=== PATIENT | female | born 1960 | race Caucasian/White ===

== ENCOUNTER 2020-09-24 10:39 | Outpatient (REF) | payer MEDICARE, MEDICAID, SELFPAY ==
[2020-09-24 11:48] LABS: MANUAL DIFF FLAG NO
[2020-09-24 12:08] LABS: Basophils Percent Auto 0.5 % (0-2); Eosinophils Absolute Auto 0.1 X10*3/uL (0.0-0.4); Hematocrit 44.4 % (37-47); Hemoglobin 13.9 g/dl (12.0-16.0); Imm Gran Abs Auto 0.01 X10*3/uL (0.00-0.03); Imm Gran Pct Auto 0.2 % (0.0-0.4); Lymphocytes Absolute Auto 1.5 X10*3/uL (1.2-4.9); Lymphocytes Percent Auto 24.5 % (20-40); Mean Corpuscular HGB Conc 31.3 g/dl (31.0-35.0); Mean Corpuscular Hemoglobin 30.4 pg (27.0-33.0); Mean Corpuscular Volume 97.2 fL (80-98); Mean Platelet Volume 10.4 fL (9.4-12.3); Monocytes Absolute Auto 0.3 X10*3/uL (0.1-1.2); Monocytes Percent Auto 5.7 % (2-11); Neutrophils Percent Auto 67.1 % (45-73); Platelet Count 174 X10*3/uL (160-400); Red Blood Count 4.57 X10*6/uL (4.20-5.50); Red Cell Distribution Width 13.4 % (11.0-16.0); White Blood Count 5.9 X10*3/uL (4.8-10.8)
[2020-09-24 12:12] LABS: Lithium 0.97 mmol/L (0.60-1.20)
[2020-09-24 12:22] LABS: Blood Urea Nitrogen 13 mg/dL (9-16); Estimated Glomerular Filt Rate > 60
[2020-09-24 12:27] LABS: Estimated Average Glucose 88 mg/dL; Hemoglobin A1c % 4.7 %
[2020-09-24 12:36] LABS: TSH reflex Free T4 0.08 mIU/mL (0.32-4.0)
[2020-09-24 15:29] LABS: Free T4 (Free Thyroxine) 1.08 ng/dL (0.71-1.85)
== END 2020-09-24 10:40 | disposition home or self-care (01) ==
LOC: HO.LAB 10:39
PROVIDERS: Visit Provider Clinical Nurse Specialist Psychiatric/Mental Health
DX: Z79.899 Other long term (current) drug therapy (principal)
CPT/HCPCS: 36415; 80178; 82565; 83036; 84439; 84443; 84520; 85025

== ENCOUNTER → 2020-12-12 10:05 | Outpatient (BNVA) | payer MEDICARE, MEDICAID, SELFPAY | PROVIDERS: Visit Provider Internal Medicine | DX: J44.9 Chronic obstructive pulmonary disease, unspecified (principal); F41.9 Anxiety disorder, unspecified; F17.200 Nicotine dependence, unspecified, uncomplicated; Z71.6 Tobacco abuse counseling; Z79.899 Other long term (current) drug therapy | CPT/HCPCS: 99212 ==

== ENCOUNTER 2021-01-17 09:47 | Outpatient (REF) | payer MEDICARE, MEDICAID, SELFPAY ==
--- NOTE | 2021-01-17 13:24 | PFT_ITS ---
Forced vital capacity is normal. FEV1 slightly reduced. [id number] is markedly reduced. MVV slightly reduced. Postbronchodilator therapy, there is no significant change. Total lung capacity is slightly increased. Residual volume moderately increased. Diffusion capacity slightly decreased. CONCLUSION: Mild obstructive airway disorder with evidence of hyperinflation and some air trapping. No significant response to bronchodilator therapy is noted. MD HAMLET Howell/MODL / [id number]
== END 2021-01-17 09:48 | disposition home or self-care (01) ==
LOC: HO.RESP 09:47
PROVIDERS: Visit Provider Internal Medicine
DX: J44.9 Chronic obstructive pulmonary disease, unspecified (principal); F17.200 Nicotine dependence, unspecified, uncomplicated
CPT/HCPCS: 94060; 94727; 94729; 99212

== ENCOUNTER 2021-11-13 06:53 | Outpatient (REF) | payer MEDICARE, MEDICAID, SELFPAY ==
[2021-11-13 07:58] LABS: Anion Gap 13 (12-20); Blood Urea Nitrogen 10 mg/dL (9-16); Calcium 11.1 mg/dL (8.4-10.2); Carbon Dioxide 32 mmol/L (22-29); Chloride 97 mmol/L (96-108); Estimated Glomerular Filt Rate 35; Glucose Random 84 mg/dL (60-115); Potassium 4.6 mmol/L (3.3-5.1); Sodium 137 mmol/L (135-145)
[2021-11-13 08:24] LABS: T4 Thyroxine < 3.0 ug/dL (4.5-12.0)
[2021-11-13 08:25] LABS: Thyroid Stimulating Hormone > 100.00 uIU/mL (0.32-4.0)
[2021-11-14 06:40] LABS: Triiodothyronine T3 Total <25 ng/dL (76-181)
== END 2021-11-13 06:54 | disposition home or self-care (01) ==
LOC: HO.LAB 06:53
PROVIDERS: Visit Provider Nurse Practitioner
DX: Z79.899 Other long term (current) drug therapy (principal)
CPT/HCPCS: 36415; 80048; 80178; 84436; 84443; 84480

== ENCOUNTER → 2021-12-12 09:26 | Outpatient (BNVA) | payer MEDICARE, MEDICAID, SELFPAY | PROVIDERS: Visit Provider Internal Medicine | DX: J44.9 Chronic obstructive pulmonary disease, unspecified (principal); F41.9 Anxiety disorder, unspecified; R91.1 Solitary pulmonary nodule; F17.210 Nicotine dependence, cigarettes, uncomplicated | CPT/HCPCS: 99212 ==

== ENCOUNTER 2022-02-28 07:47 | Outpatient (REF) | payer MEDICARE, MEDICAID, SELFPAY ==
--- NOTE | ~2022-02-28 | CT_ITS ---
EXAMINATION: CT CHEST SCREENING CLINICAL INFORMATION: Current smoker. 40 pack year history. COMPARISON: None. TECHNIQUE: Multidetector volumetric CT imaging of the chest is performed without contrast using low dose technique. Additional 2D coronal and sagittal reformatted images and axial 3D maximum intensity projection (MIP) images are generated on the CT workstation. This CT examination was performed using dose optimization techniques as appropriate, variously including the following: *Automated exposure control *Adjustment of mA and/or kV according to patient size (this includes techniques or standardized protocols for targeted exams where dose is matched to indication/reason for exam; i.e. extremities or head) *Use of iterative reconstruction technique DLP: 98 mGy-cm FINDINGS: LUNGS: Stable pulmonary nodules. 4 mm right upper lobe nodule axial image 195 series 5. Minimal thickening along the right major fissure axial image 239 series 5. Clustered peribronchial left upper lobe nodules, largest measuring 2 mm axial image 233 series 5. 3 mm calcified right lower lobe nodule axial image 288 series 5. Scarring or subsegmental atelectasis at the right lung base in the right lower lobe. No endobronchial or endotracheal lesion. MEDIASTINUM: The mediastinum is normal. PLEURA: No pleural effusion. Prominent extrapleural fat adjacent to the left upper lobe that is stable. AXILLA: No lymphadenopathy. UPPER ABDOMEN: Unremarkable OSSEOUS STRUCTURES: Degenerative changes of the spine. CT/CT lung screening IMPRESSION: Stable small pulmonary nodules. ASSESSMENT: Lung-RADS category 2: Benign RECOMMENDATION: Annual low-dose chest CT follow-up recommended.
== END 2022-02-28 07:48 | disposition home or self-care (01) ==
LOC: HO.CT 07:47
PROVIDERS: Visit Provider Physician Assistant Medical
DX: Z12.2 Encounter for screening for malignant neoplasm of respiratory organs (principal); F17.210 Nicotine dependence, cigarettes, uncomplicated
CPT/HCPCS: 71271

== ENCOUNTER → 2022-06-12 09:46 | Outpatient (BNVA) | payer MEDICARE, MEDICAID, SELFPAY | PROVIDERS: PCP Nurse Practitioner Family; Visit Provider Internal Medicine | DX: J44.9 Chronic obstructive pulmonary disease, unspecified (principal); R91.1 Solitary pulmonary nodule; Z87.891 Personal history of nicotine dependence | CPT/HCPCS: 99212 ==

== ENCOUNTER 2022-08-12 07:44 | Outpatient (REF) | payer MEDICARE, MEDICAID, SELFPAY ==
[2022-08-12 07:55] LABS: MANUAL DIFF FLAG NO
[2022-08-12 08:13] LABS: Basophils Percent Auto 0.8 % (0-2); Eosinophils Absolute Auto 0.1 X10*3/uL (0.0-0.4); Eosinophils Percent Auto 1.9 % (0-4); Hematocrit 35.9 % (37.0-47.0); Hemoglobin 11.1 g/dl (12.0-16.0); Imm Gran Abs Auto 0.03 X10*3/uL (0.00-0.03); Imm Gran Pct Auto 0.8 % (0.0-0.4); Lymphocytes Absolute Auto 0.6 X10*3/uL (1.2-4.9); Lymphocytes Percent Auto 15.7 % (20-40); Mean Corpuscular HGB Conc 30.9 g/dl (31.0-35.0); Mean Corpuscular Hemoglobin 31.1 pg (27.0-33.0); Mean Corpuscular Volume 100.6 fL (80.0-98.0); Mean Platelet Volume 9.6 fL (9.4-12.3); Monocytes Absolute Auto 0.4 X10*3/uL (0.1-1.2); Monocytes Percent Auto 9.9 % (2-11); Neutrophils Absolute Auto 2.6 x10*3/uL (2.0-8.3); Neutrophils Percent Auto 70.9 % (45-73); Platelet Count 181 X10*3/uL (160-400); Red Blood Count 3.57 X10*6/uL (4.20-5.50); Red Cell Distribution Width 15.2 % (11.0-16.0); White Blood Count 3.6 X10*3/uL (4.8-10.8)
[2022-08-12 09:05] LABS: Alanine Aminotransferase 16 U/L (0-31); Albumin Level 4.2 g/dL (3.5-5.0); Alkaline Phosphatase 52 U/L (39-117); Anion Gap 14 (12-20); Aspartate Amino Transferase 9 U/L (5-31); Bilirubin Total 0.4 mg/dL (0.0-1.0); Blood Urea Nitrogen 13 mg/dL (9-16); Calcium 10.2 mg/dL (8.4-10.2); Carbon Dioxide 27 mmol/L (22-29); Chloride 104 mmol/L (96-108); Cholesterol 123 mg/dL; Estimated Glomerular Filt Rate 55; Free T4 (Free Thyroxine) 1.57 ng/dL (0.71-1.85); Glucose Fasting 96 mg/dL (60-99); HDL Cholesterol 46 mg/dL; LDL Cholesterol Calculated 64 mg/dl; Potassium 4.2 mmol/L (3.3-5.1); Sodium 141 mmol/L (135-145); Thyroid Stimulating Hormone 0.51 uIU/mL (0.32-4.0); Total Protein 6.2 g/dL (6.5-8.0); Triglycerides 66 mg/dL; Vitamin D 25-OH Total 11.6 ng/mL (>30)
[2022-08-12 09:20] LABS: Folate 2.3 ng/mL (> or = 4.0); Vitamin B12 < 148 pg/mL (200-900)
[2022-08-14 09:49] LABS: Thyroid Peroxidase Antibodies 92 IU/mL (<9)
== END 2022-08-12 07:45 | disposition home or self-care (01) ==
LOC: HO.LAB 07:44
PROVIDERS: PCP Nurse Practitioner Family; Visit Provider Nurse Practitioner Family
DX: E03.9 Hypothyroidism, unspecified (principal); Z76.89 Persons encountering health services in other specified circumstances
CPT/HCPCS: 36415; 80053; 80061; 82306; 82607; 82746; 84439; 84443; 85025; 86376

== ENCOUNTER → 2022-08-26 10:47 | Outpatient (BNVA) | payer MEDICARE, MEDICAID, SELFPAY | PROVIDERS: PCP Nurse Practitioner Family; Visit Provider Internal Medicine Endocrinology, Diabetes & Metabolism | DX: E03.9 Hypothyroidism, unspecified (principal); Z79.899 Other long term (current) drug therapy | CPT/HCPCS: 99202 ==

== ENCOUNTER → 2022-10-14 09:31 | Outpatient (BNVA) | payer MEDICARE, MEDICAID, SELFPAY | PROVIDERS: PCP Nurse Practitioner Family; Visit Provider Internal Medicine | DX: J44.9 Chronic obstructive pulmonary disease, unspecified (principal); R91.1 Solitary pulmonary nodule; F17.200 Nicotine dependence, unspecified, uncomplicated | CPT/HCPCS: 99212 ==

== ENCOUNTER 2022-10-15 07:25 | Outpatient (REF) | payer MEDICARE, MEDICAID, SELFPAY ==
--- NOTE | ~2022-10-15 | CT_ITS ---
EXAMINATION: CT HEAD WITHOUT CONTRAST CLINICAL INFORMATION: Gait and mobility abnormality. COMPARISON: None TECHNIQUE: Contiguous axial imaging was performed from the skull base to vertex without intravenous administration of contrast. This CT examination was performed using dose optimization techniques as appropriate, variously including the following: *Automated exposure control *Adjustment of mA and/or kV according to patient size (this includes techniques or standardized protocols for targeted exams where dose is matched to indication/reason for exam; i.e. extremities or head) *Use of iterative reconstruction technique DLP: 814 mGy-cm FINDINGS: No intracranial hemorrhage is identified. No abnormal extra-axial fluid collection is seen. No significant mass effect or midline structure shift. Coles-white matter interface is maintained. The ventricles, sulci, and cisterns appear unremarkable. Visualized paranasal sinuses unremarkable. Mastoid air cells are aerated. Calvarium intact. Temporomandibular joints unremarkable. CT/CT head/brain wo IV con IMPRESSION: No acute intracranial pathology.
== END 2022-10-15 07:26 | disposition home or self-care (01) ==
LOC: HO.CT 07:25
PROVIDERS: PCP Nurse Practitioner Family; Visit Provider Nurse Practitioner Family
DX: R26.89 Other abnormalities of gait and mobility (principal)
CPT/HCPCS: 70450

== ENCOUNTER 2022-10-30 13:39 | Outpatient (REF) | payer MEDICARE, MEDICAID, SELFPAY ==
--- NOTE | 2022-10-30 08:15 | EMG_ITS ---
Right median and ulnar motor and sensory studies were performed. Right radial sensory study was performed and paraspinal muscles were tested with a needle. IMPRESSION: 1. Severe right median neuropathy across carpal tunnel. 2. 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 MD DANIEL Greer/INOCENCIO / [id number]
== END 2022-10-30 13:40 | disposition home or self-care (01) ==
LOC: HO.NEURO 13:39
PROVIDERS: PCP Nurse Practitioner Family; Visit Provider Nurse Practitioner Family
DX: R20.0 Anesthesia of skin (principal)
CPT/HCPCS: 95886; 95909

== ENCOUNTER 2022-11-07 10:19 | Outpatient (REF) | payer MEDICARE, MEDICAID, SELFPAY ==
--- NOTE | ~2022-11-07 | MM_ITS ---
EXAMINATION: MM SCREENING DIGITAL BREAST TOMOSYNTHESIS, BILATERAL CLINICAL INFORMATION: Screening. Asymptomatic. The lifetime risk of breast cancer based on the Tyrer-Cuzick Model is 6%. COMPARISON: Mammography: 06/01/2018 TECHNIQUE: Digital breast tomosynthesis is performed in both the craniocaudal and mediolateral oblique views along with computer-aided detection (CAD). Synthesized 2D images are generated from the tomosynthesis. Additional bilateral MLO views are provided. FINDINGS: There are scattered areas of fibroglandular density (ACR BI-RADS breast composition Category b). There are no significant masses, abnormal calcifications, or other abnormalities. Parenchymal pattern is similar to prior studies. There is no developing density or architectural abnormality. The axilla and skin contours are unremarkable. No significant changes. MM/MM tomosynthesis screening BI IMPRESSION: No mammographic evidence of malignancy. ASSESSMENT: BI-RADS 1: Negative RECOMMENDATION: Routine annual mammography screening. This patient's information was entered into a reminder system with a target due date for their next mammogram.
== END 2022-11-07 10:20 | disposition home or self-care (01) ==
LOC: HO.MAMMO 10:19
PROVIDERS: PCP Nurse Practitioner Family; Visit Provider Internal Medicine
DX: Z12.31 Encounter for screening mammogram for malignant neoplasm of breast (principal)
CPT/HCPCS: 77063; 77067

== ENCOUNTER → 2022-12-10 09:48 | Outpatient (BNVA) | payer MEDICARE, MEDICAID, SELFPAY | PROVIDERS: PCP Internal Medicine; Visit Provider Orthopaedic Surgery | DX: Z01.818 Encounter for other preprocedural examination (principal); G56.01 Carpal tunnel syndrome, right upper limb; G56.22 Lesion of ulnar nerve, left upper limb | CPT/HCPCS: 99202 ==

== ENCOUNTER 2023-01-01 06:40 | Outpatient (REF) | payer MEDICARE, MEDICAID, SELFPAY ==
--- NOTE | ~2023-01-01 | XR_ITS ---
EXAMINATION: XR ABDOMEN KUB CLINICAL INDICATION: Constipation COMPARISON: None available. TECHNIQUE: AP view of the abdomen. FINDINGS: There is a large amount of stool in the colon suggestive of constipation. The proximal colon is slightly dilated suggestive of mild secondary obstruction or obstipation. No free air. No suspicious calcifications. Surgical devices in the pelvis likely from prior fallopian tube ligation. Degenerative changes of the lower lumbar spine and right hip joint. XR/XR KUB IMPRESSION: Severe constipation. Slightly dilated proximal large bowel suggestive of mild obstruction.
[2023-01-01 07:22] LABS: Hemoglobin 13.3 g/dl (12.0-16.0); Mean Corpuscular HGB Conc 30.9 g/dl (31.0-35.0); Mean Corpuscular Volume 90.5 fL (80.0-98.0); Mean Platelet Volume 10.4 fL (9.4-12.3); Platelet Count 190 X10*3/uL (160-400); Red Blood Count 4.75 X10*6/uL (4.20-5.50); Red Cell Distribution Width 14.8 % (11.0-16.0); White Blood Count 5.2 X10*3/uL (4.8-10.8)
[2023-01-01 08:02] LABS: Anion Gap 12 (12-20)
[2023-01-01 09:03] LABS: Alanine Aminotransferase 16 U/L (0-31); Albumin Level 4.3 g/dL (3.5-5.0); Alkaline Phosphatase 60 U/L (39-117); Aspartate Amino Transferase 11 U/L (5-31); Bilirubin Total 0.4 mg/dL (0.0-1.0); Blood Urea Nitrogen 14 mg/dL (9-16); Calcium 10.3 mg/dL (8.4-10.2); Carbon Dioxide 27 mmol/L (22-29); Chloride 106 mmol/L (96-108); Estimated Glomerular Filt Rate 52; Ferritin 68 ng/mL (10-250); Glucose Random 86 mg/dL (60-115); Iron 65 mcg/dL (30-160); Percent Iron Saturation 23 % (15-50); Potassium 4.3 mmol/L (3.3-5.1); Sodium 141 mmol/L (135-145); TSH reflex Free T4 0.32 uIU/mL (0.32-4.0); Total Iron Binding Capacity 280 mcg/dL (228-428); Total Protein 6.4 g/dL (6.5-8.0); Unsaturated Iron Binding 215 ug/dL; Vitamin D 25-OH Total 35.6 ng/mL (>30)
[2023-01-01 09:21] LABS: Folate > 20.0 ng/mL (> or = 4.0); Vitamin B12 > 2000 pg/mL (200-900)
== END 2023-01-01 06:41 | disposition home or self-care (01) ==
LOC: HO.LAB 06:40
PROVIDERS: PCP Nurse Practitioner Family; Visit Provider Nurse Practitioner Family
DX: Z13.89 Encounter for screening for other disorder (principal)
CPT/HCPCS: 36415; 74018; 80053; 82306; 82607; 82728; 82746; 83540; 84443; 85027

== ENCOUNTER 2023-01-01 07:22 | Day surgery (SDC) | payer MEDICARE, MEDICAID, SELFPAY ==
[2023-01-01 08:13] VITALS: BMI 23.9
[2023-01-01 08:15] VITALS: BP 105/67; PULSE 82; RESP 18; TEMP 36.7; O2SAT 95
--- NOTE | 2023-01-01 08:20 | MHC.SHP ---
Pre-Procedural Eval Section A Date of Service: 01/01/23 The patient is an INPATIENT: No Changes since office visit: No Cold of Flu in the past 2 weeks, No New Medical Problems, No Changes in Medication and No Patient answered all questions The History & Physical has been completed within 30 days and I have reviewed it.: Yes Section B Chief Complaint: Carpal tunnel syndrome, right upper limb Allergies: Allergies Allergy/AdvReac Type Severity Reaction Status Date / Time bee pollen [BEE STINGS] Allergy Unknown UNKNOWN Verified 12/23/22 08:39 pneumococcal vaccine Allergy Unknown SWELLING Verified 12/23/22 08:39 [PNEUMOCOCCAL VACCINE] Plan I have reviewed the history and physical and performed a pertinent physical examination on my patient. No changes have occurred unless specified. Time Spent With Patient Time: Total time managing care of this patient today ____ minutes.
--- NOTE | 2023-01-01 08:20 | W.PM.OPN ---
Operative Note Operative Note Date of Service: 01/01/23 Narrative: Preop diagnosis: 1. Right Carpal tunnel syndrome Postop diagnosis: same Procedure: 1. Right Carpal tunnel release Surgeon: Rupal Conde MD Anesthesia: local block using 1% lidocaine with epinephrine Findings: Thickened transverse carpal ligament. EBL: Less than 5 mL Specimens: None Complications: None Disposition: Brought to recovery room in stable condition Plan: Follow-up for 10-14 days for wound check and suture removal Indications: The patient is 62 years old, with right carpal tunnel syndrome that has been unresponsive to nonoperative management. The risks and benefits of operative treatment including but not limited to risk of damage to blood vessels, nerves, tendons, infection, persistent pain, persistent symptoms, or possible need for additional surgery were discussed with the patient and the patient wishes to proceed with surgery. Procedure: Once consent was obtained a local block was performed using a combination of 1% lidocaine with epinephrine. The patient was then brought back to the operating suite and placed on the operative table in supine position. The right upper extremity was prepped and draped in a standard surgical fashion. Once assured that we had a good block, a 2.0 cm longitudinal incision was made centered over the carpal tunnel. The incision was made through the skin to the subcutaneous tissues using a #15 blade. Dissection was made down to the level of the transverse carpal ligament with care being taken to protect the palmar cutaneous nerve. Once the transverse carpal ligament was clearly visualized, a longitudinal incision was made in the transverse carpal ligament 1st using a #15 blade, then using tenotomy scissors under direct visualization. Care was taken to look for and protect the motor branch of the median nerve when seen in this area. Once satisfied with our carpal tunnel release the wound was copiously irrigated with normal saline and hemostasis was obtained with a brief period of local pressure. The skin edges were reapproximated with some 5.0 nylon suture material and a sterile dressing was applied. The patient appears to have tolerated the procedure well and with no complications. All digits were well vascularized at the conclusion of the case.
[2023-01-01 09:43] VITALS: BP 108/62; PULSE 71; RESP 18; O2SAT 94
== END 2023-01-01 09:46 | disposition home or self-care (01) ==
PROVIDERS: PCP Nurse Practitioner Family; Visit Provider Orthopaedic Surgery
PROC: (CPT 64721; principal; 2023-01-01 10:10)
DX: G56.01 Carpal tunnel syndrome, right upper limb (principal); R20.0 Anesthesia of skin; R20.2 Paresthesia of skin; J44.9 Chronic obstructive pulmonary disease, unspecified; R91.1 Solitary pulmonary nodule; E03.9 Hypothyroidism, unspecified; F31.9 Bipolar disorder, unspecified; F41.1 Generalized anxiety disorder; Z88.7 Allergy status to serum and vaccine; Z91.030 Bee allergy status; F17.210 Nicotine dependence, cigarettes, uncomplicated; Z79.899 Other long term (current) drug therapy
CPT/HCPCS: 64721; 36415; 74018; 80053; 82306; 82607; 82728; 82746; 83540; 84443; 85027; J0171

== ENCOUNTER → 2023-01-14 08:18 | Outpatient (BNVA) | payer MEDICARE, MEDICAID, SELFPAY | PROVIDERS: PCP Nurse Practitioner Family; Visit Provider Orthopaedic Surgery | DX: Z47.89 Encounter for other orthopedic aftercare (principal); Z86.69 Personal history of other diseases of the nervous system and sense organs | CPT/HCPCS: 99212 ==

== ENCOUNTER → 2023-02-16 08:44 | Outpatient (BNVA) | payer MEDICARE, MEDICAID, SELFPAY | PROVIDERS: PCP Nurse Practitioner Family; Visit Provider Internal Medicine | DX: J44.9 Chronic obstructive pulmonary disease, unspecified (principal); R91.1 Solitary pulmonary nodule; Z87.891 Personal history of nicotine dependence | CPT/HCPCS: 99212 ==

== ENCOUNTER 2023-04-08 14:22 | Outpatient (AMB) | payer MEDICARE, MEDICAID, SELFPAY ==
--- NOTE | 2023-04-08 14:23 | MHC.PC.OV ---
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 Required: No Allergies bee pollen [BEE STINGS] Allergy (Unknown, Verified 04/08/23 14:34) UNKNOWN pneumococcal vaccine [PNEUMOCOCCAL VACCINE] Allergy (Unknown, Verified 04/08/23 14:34) SWELLING Medication List - Last Reconciled 04/08/23 by Lena Cano, KAREL albuterol sulfate 2.5 mg (3 mL) inhalation Q6H PRN cholecalciferol (vitamin D3) 50 mcg PO DAILY clonazepam 1 mg PO BID PRN docusate sodium (Colace) 100 mg PO DAILY PRN fluticasone propion-salmeterol 250-50 mcg/dose (Advair Diskus) 1 inh inhalation BID folic acid 0.4 mg PO DAILY hydroxyzine HCl 50 mg PO BEDTIME lamotrigine 100 mg PO BID levothyroxine 175 mcg PO DAILY lithium carbonate 600 mg PO BEDTIME quetiapine 300 mg PO DAILY quetiapine 400 mg PO BEDTIME Ventolin HFA 90 mcg/actuation (albuterol sulfate) 2 puffs PO Q4-6H PRN NS zolpidem 5 mg PO BEDTIME PRN Tobacco use date assessed: 04/08/23 Dental Screening Dental Screen Date: 04/08/23 Did you have a dental visit in the last 12 months?: No Did you have a dental problem in the last 6 months where you did not have access to dental care?: No Was dental information given to patient?: Patient has dentist HPI f/u Thyroid HPI Details Patient is a 62-year-old female presents today for a routine follow-up. Medical history significant for hypothyroidism, anxiety, bipolar disorder, nicotine dependence, and COPD with lung nodule on CT scan - followed by pulmonology Dr. Garvey.? Mental health is followed by Psychiatry and therapy at [facility]. Patient reports intermittent ongoing constipation for very long time now, she reports when she was on Colace it was helping her, she has ran out on Colace now, would like refill. She reports normal bowel movement yesterday and today.? She denies nausea or vomiting, no abdominal pain. No fever or chills. No shortness of breath or chest pain. ? [facility] Medical History Anxiety Bipolar disorder COPD (chronic obstructive pulmonary disease) Encounter to establish care Gastroenteritis Hypothyroidism Lung nodule < 6cm on CT Personal history of nicotine dependence Tubular adenoma of colon (~2018) Surgical History History of colonoscopy History of shoulder surgery (~2018) History of surgery on right wrist (~2016) Family History Mother Lung cancer Father Colon cancer Social History Household Members: Family Household Members Other:: 2 daughters, 2 grandkids Housing: House Patient Tobacco Use Status: Current everyday Tobacco user Cigarette Packs Per Day: 35 Cigarettes Per Day: 1.5 e-Cigarette/Vaping Use: Never Used Second Hand Smoke Exposure: Yes service: No Current occupational status: unemployed 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 1. Little interest or pleasure in doing things: more than half the days 2. Feeling down, depressed, or hopeless: nearly every day 3. Trouble falling or staying asleep, or sleeping too much: nearly every day 4. Feeling tired or having little energy: nearly every day 5. Poor appetite or overeating: nearly every day (poor appetite ) 6. Feeling bad about yourself - or that you are a failure or have let yourself or your family down: not at all 7. Trouble concentrating on things, such as reading the newspaper or watching television: nearly every day 8. Moving or speaking so slowly that other people could have noticed. Or the opposite - being so fidgety or restless that you have been moving around a lot more than usual: more than half the days 9. Thoughts that you would be better off or of hurting yourself in some way: not at all Total score: 19 Depression Screening Interpretation: Positive Depression Screening Follow-up: In treatment 39132 - PHQ-9 Billing: Yes Source: Developed by Drs. Ok Elmore, Chris Espitia and colleagues, with an educational ty from [employer]. Thrive Questionnaire Date Thrive assessed: 04/08/23 I am a: Patient Currently or been in a relationship where the following occur: no concerns reported AUDIT C Alcohol Use Questionnaire (AUDIT-C) 1. How often do you have a drink containing alcohol?: Never 2. How many drinks containing alcohol do you have on a typical day when you are drinking?: 1 or 2 (0) 3. How often do you have six or more drinks on one occasion?: Never Total Score: 0 Score Reviewed/Action Taken: No NAIMA-7 AMB Questionnaire NAIMA-7 Date NAIMA - 7 assessed: 09/23/22 Source: Developed by Drs. Ok Elmore, Chris Espitia and colleagues, with an educational ty from [employer]. Review of Systems Const Denies body aches, Denies chills, Denies fatigue, Denies fever(s) and Denies headache(s) Eyes Denies change in vision ENT Denies dizziness, Denies otalgia, Denies headache(s), Denies nasal discharge, Denies sinus pain and Denies sore throat Card Denies chest pain, Denies edema, Denies lightheadedness and Denies dyspnea Resp Denies chest congestion, Denies cough, Denies hemoptysis and Denies dyspnea GI Denies abdominal pain, Reports constipation, Denies diarrhea, Denies nausea and Denies vomiting Denies dysuria Musc Denies myalgias Skin/Breast Denies lesions and Denies rash Neuro Denies dizziness and Denies headache(s) Endo Denies fatigue Physical exam (Primary Care) Vital Signs: Last Vital Signs Pulse 77 04/08/23 14:24 BP 138/70 04/08/23 14:24 Pulse Ox 90 L 04/08/23 14:24 Oxygen Delivery Method Room Air 04/08/23 14:24 BMI result Body Mass Index 26.5 Tobacco/Smoking Status: Tobacco use Status Tobacco use date assessed 04/08/23 04/08/23 14:25 Patient Tobacco Use Status Current everyday Tobacco 04/08/23 14:25 e-Cigarette/Vaping Use Never Used 04/08/23 14:25 PHQ-9: PHQ-9 Score PHQ-9: Total score 19 04/08/23 14:25 Depression Screening Interpretation: Positive Depression Screening Follow-up: In treatment Thrive Assessment: Date of Thrive Assessment Date Thrive assessed 04/08/23 04/08/23 14:25 Currently or been in a relationship where the following occur: no concerns reported Const General: cooperative and no acute distress Orientation/consciousness: patient oriented x3 HENMT Head: Yes normocephalic and Yes atraumatic Face and sinus: Yes sinuses nontender Mouth: oropharynx normal and moist mucous membranes Throat: Yes posterior oropharynx normal Eyes General: appearance normal, both eyes and all related structures Neck Neck: Yes normal visual inspection, Yes full ROM and Yes no lymphadenopathy Thyroid: Thyroid normal Resp Effort & Inspection: normal respiratory effort and able to speak in complete sentences Auscultation: clear to auscultation bilaterally, no crackles, no rales, no rhonchi and no wheezes Cardio Rate: regular rate Rhythm: regular rhythm Heart sounds: S1 normal heart sound present, S2 normal heart sound present and no murmurs GI Palpation (GI): Soft to palpation, not firm, nontender, no guarding, not rigid and no hepatosplenomegaly Auscultation: normal bowel sounds Skin General skin exam: no rashes or lesions noted Neuro General: patient oriented x3 Gait exam (Neuro): Normal gait present Extrem General: Yes full ROM and No edema Assessment and Plan Assessment & Plan (1) Hypothyroidism: Code(s): E03.9 - Hypothyroidism, unspecified Plan: Levothyroxine 175 mcg daily Patient was seen by endocrinology once and transferred to PCP for thyroid management (2) Anxiety: Code(s): F41.9 - Anxiety disorder, unspecified Plan: Continue to follow-up with Psychiatry Dr. Medina and therapist at [facility] Patient is on Klonopin 1 mg b.i.d. p.r.n.-prescribed by Psychiatry (3) Bipolar disorder: Code(s): F31.9 - Bipolar disorder, unspecified Plan: Continue to follow-up with Psychiatry Dr. Median and therapist at [facility] Patient is on Lamotrigine, lithium, and quetiapine-prescribed by Psychiatry (4) COPD (chronic obstructive pulmonary disease): Comment: (Moderately Severe COPD, well controlled) Tx: CONTINUE ADVAIR 250-50 1 INHALATION B.I.D. USE PROAIR 2 PUFFS Q 6 HOURS P.R.N. MAY ALSO USE MUCINEX 400 MG B.I.D. TO FACILITATE THE CLEARANCE OF MUCUS. Code(s): J44.9 - Chronic obstructive pulmonary disease, unspecified Plan: Continue current treatment Continue to follow-up with pulmonology Dr. Garvey (5) Constipation: Code(s): K59.00 - Constipation, unspecified Plan: Increase dietary fiber, fluid consumption, and exercise Continue Colace 100 mg daily p.r.n. (6) Personal history of nicotine dependence: Comment: (current smoker, 1 ppd - in LDCT program since 2019) Trying to cut down the amount of cigarettes . It is difficult for her to quit . She is looking into going for hip note is. Code(s): Z87.891 - Personal history of nicotine dependence Plan: Encouraged smoking cessation Patient declined nicotine patch or nicotine gum Plan Follow-up in 3 months or sooner as needed Orders: Orders Vitamin D 25-OH Total Today E03.9 - Hypothyroidism, unspecified Vitamin B12 and Folate Today E03.9 - Hypothyroidism, unspecified TSH reflex Free T4 Today E03.9 - Hypothyroidism, unspecified Lipid Panel Today E03.9 - Hypothyroidism, unspecified Comprehensive Wideman. Panel Fast Today E03.9 - Hypothyroidism, unspecified Medications: Refilled docusate sodium (Colace) 100 mg PO DAILY PRN 30 caps 2RF congestion K59.00 - Constipation, unspecified Coding Level of Care Code Est Pt Level 4 (14604) Diagnoses Hypothyroidism E03.9 Anxiety F41.9 Bipolar disorder F31.9 COPD (chronic obstructive pulmonary disease) J44.9 Constipation K59.00 Personal history of nicotine dependence Z87.899
[2023-04-08 14:24] VITALS: BP 138/70; PULSE 77; O2SAT 90; BMI 26.5
[2023-04-08 14:38] VITALS: O2SAT 93
== END 2023-04-08 14:44 | disposition home or self-care (01) ==
PROVIDERS: PCP Nurse Practitioner Family; Visit Provider Nurse Practitioner Family
DX: E03.9 Hypothyroidism, unspecified (principal); F41.9 Anxiety disorder, unspecified; J44.9 Chronic obstructive pulmonary disease, unspecified; Z87.891 Personal history of nicotine dependence; F31.9 Bipolar disorder, unspecified; K59.00 Constipation, unspecified
CPT/HCPCS: 99214

== ENCOUNTER 2023-07-09 08:23 | Outpatient (AMB) | payer MEDICARE, MEDICAID, SELFPAY ==
[2023-07-09 08:32] VITALS: BP 112/68; PULSE 78; O2SAT 93; BMI 27.7
--- NOTE | 2023-07-09 08:32 | A.OFFPC_ITS ---
Vital Signs 07/09/23 08:32 Height 5 ft 8 in Weight 182 lb BMI 27.7 BP 112/68 Blood Pressure Location Lt brachial Position Sitting Pulse 78 Pulse Source Pulse Oximeter Pulse Oximetry (%) 93 Oxygen Delivery Method Room Air Intake Visit Reasons: F/u on thyroid Mgmt Specialist Required: No Allergies bee pollen [BEE STINGS] Allergy (Unknown, Verified 07/09/23 08:41) UNKNOWN pneumococcal vaccine [PNEUMOCOCCAL VACCINE] Allergy (Unknown, Verified 07/09/23 08:41) SWELLING Medication List - Last Reconciled 07/09/23 by KAREL Pate albuterol sulfate 2.5 mg (3 mL) inhalation Q6H PRN cholecalciferol (vitamin D3) 50 mcg PO DAILY clonazepam 1 mg PO BID PRN docusate sodium (Colace) 100 mg PO DAILY PRN fluticasone propion-salmeterol 250-50 mcg/dose (Advair Diskus) 1 inh inhalation BID folic acid 0.4 mg PO DAILY hydroxyzine HCl 50 mg PO BEDTIME lamotrigine 100 mg PO BID levothyroxine 175 mcg PO DAILY lithium carbonate 600 mg PO BEDTIME quetiapine 300 mg PO DAILY quetiapine 400 mg PO BEDTIME Ventolin HFA 90 mcg/actuation (albuterol sulfate) 2 puffs PO Q4-6H PRN NS zolpidem 5 mg PO BEDTIME PRN Tobacco use date assessed: 07/09/23 HPI F/u on thyroid HPI Details Patient is a 62-year-old female presents today for a routine follow-up. Medical history significant for hypothyroidism, anxiety, bipolar disorder, nicotine dependence, and COPD with lung nodule on CT scan - followed by pulmonology Dr. Garvey.? Mental health is followed by Psychiatry and therapy at [facility]. Patient reports bilateral shoulder pain for the past couple months right more than left, denies injury. Reports pain with range of motion of shoulders. Reports numbness and tingling in her left hand-has bilateral carpal tunnel syndrome-followed by Dr. Conde. No shortness of breath or chest pain. Patient was encouraged to complete her blood work.? [facility] Medical History Gastroenteritis Encounter to establish care Personal history of nicotine dependence Hypothyroidism Bipolar disorder Tubular adenoma of colon (~2019) Lung nodule < 6cm on CT Anxiety COPD (chronic obstructive pulmonary disease) Surgical History History of surgery on right wrist (~2016) History of shoulder surgery (~2019) History of colonoscopy Family History Mother Lung cancer Father Colon cancer Social History Household Members: Family Household Members Other:: 2 daughters, 2 grandkids Housing: House Patient Tobacco Use Status: Current everyday Tobacco user Cigarette Packs Per Day: 35 Cigarettes Per Day: 1.5 e-Cigarette/Vaping Use: Never Used Second Hand Smoke Exposure: Yes service: No Current occupational status: unemployed 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 1. Little interest or pleasure in doing things: more than half the days 2. Feeling down, depressed, or hopeless: nearly every day 3. Trouble falling or staying asleep, or sleeping too much: nearly every day 4. Feeling tired or having little energy: nearly every day 5. Poor appetite or overeating: nearly every day (poor appetite ) 6. Feeling bad about yourself - or that you are a failure or have let yourself or your family down: not at all 7. Trouble concentrating on things, such as reading the newspaper or watching television: nearly every day 8. Moving or speaking so slowly that other people could have noticed. Or the opposite - being so fidgety or restless that you have been moving around a lot more than usual: more than half the days 9. Thoughts that you would be better off or of hurting yourself in some way: not at all Total score: 19 Depression Screening Interpretation: Positive Depression Screening Follow-up: In treatment Depression Screening Done: Yes [id number] - PHQ-9 Billing: Yes Source: Developed by Drs. Ok Elmore, Alisha Bartlett, Chris Gallo and colleagues, with an educational ty from [employer]. Thrive Questionnaire Date Thrive assessed: 04/08/23 AUDIT C Alcohol Use Questionnaire (AUDIT-C) 1. How often do you have a drink containing alcohol?: Never 2. How many drinks containing alcohol do you have on a typical day when you are drinking?: 1 or 2 (0) 3. How often do you have six or more drinks on one occasion?: Never Total Score: 0 Score Reviewed/Action Taken: No NAIMA-7 AMB Questionnaire NAIMA-7 Date NAIMA - 7 assessed: 09/23/22 Source: Developed by Drs. Ok Elmore, Alisha Bartlett, Chris Gallo and colleagues, with an educational ty from [employer]. Review of Systems Const Denies body aches, Denies chills, Denies fatigue, Denies fever(s) and Denies headache(s) ENT Denies dizziness, Denies otalgia, Denies headache(s), Denies nasal discharge, Denies sinus pain and Denies sore throat Card Denies chest pain, Denies edema, Denies lightheadedness and Denies dyspnea Resp Denies chest congestion, Denies cough, Denies hemoptysis and Denies dyspnea GI Denies abdominal pain Musc Reports as per HPI and Denies myalgias Skin/Breast Denies lesions and Denies rash Neuro Denies dizziness and Denies headache(s) Endo Denies fatigue Physical exam (Primary Care) Vital Signs: Last Vital Signs Pulse 78 07/09/23 08:32 BP 112/68 07/09/23 08:32 Pulse Ox 93 07/09/23 08:32 Oxygen Delivery Method Room Air 07/09/23 08:32 BMI result Body Mass Index 27.7 Tobacco/Smoking Status: Tobacco use Status Tobacco use date assessed 07/09/23 07/09/23 08:35 Patient Tobacco Use Status Current everyday Tobacco 07/09/23 08:35 e-Cigarette/Vaping Use Never Used 07/09/23 08:35 PHQ-9: PHQ-9 Score PHQ-9: Total score 19 07/09/23 08:41 Depression Screening Interpretation: Positive Depression Screening Follow-up: In treatment Thrive Assessment: Date of Thrive Assessment Date Thrive assessed 04/08/23 07/09/23 08:35 Const General: cooperative and no acute distress Orientation/consciousness: patient oriented x3 HENMT Head: Yes normocephalic and Yes atraumatic Face and sinus: Yes sinuses nontender Mouth: oropharynx normal and moist mucous membranes Throat: Yes posterior oropharynx normal Eyes General: appearance normal, both eyes and all related structures Neck Neck: Yes normal visual inspection, Yes full ROM and Yes no lymphadenopathy Thyroid: Thyroid normal Resp Effort & Inspection: normal respiratory effort and able to speak in complete sentences Auscultation: clear to auscultation bilaterally, no crackles, no rales, no rhonchi and no wheezes Cardio Rate: regular rate Rhythm: regular rhythm Heart sounds: S1 normal heart sound present, S2 normal heart sound present and no murmurs GI Auscultation: normal bowel sounds Skin General skin exam: no rashes or lesions noted Neuro General: patient oriented x3 Gait exam (Neuro): Normal gait present Extrem Other: Bilateral shoulders normal to inspection, anterior aspect tender to palpation, mild pain with range of motion, skin is intact General: Yes full ROM and No edema Office Procedures Flu Questionnaire Does the patient have a severe egg allergy?: No Does the patient have severe life threatening allergies?: No Does the patient have a fever or illness today?: No Has the patient ever had Guillain-[place] Syndrome?: No Has the patient ever had any past reaction to a flu shot?: No Immunizations flu vacc [id number] 6mos up(PF) 60 mcg(15 mcgx4)/0.5 mL IM syringe Performing Provider: KAREL Pate [facility] Administered by: CONNOR Oliveira on 07/09/23 08:49 Dose Route Admin Location Dispensed Lot Number Expiration Date 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 Medina and therapist at [facility] Patient is on Klonopin 1 mg b.i.d. p.r.n.-prescribed by Psychiatry (3) Bipolar disorder: Code(s): F31.9 - Bipolar disorder, unspecified Plan: Continue to follow-up with Psychiatry Dr. Medina and therapist at [facility] Patient is on Lamotrigine, lithium, and quetiapine-prescribed by Psychiatry (4) COPD (chronic obstructive pulmonary disease): Comment: (Moderately Severe COPD, well controlled) Tx: CONTINUE ADVAIR 250-50 1 INHALATION B.I.D. USE PROAIR 2 PUFFS Q 6 HOURS P.R.N. MAY ALSO USE MUCINEX 400 MG B.I.D. TO FACILITATE THE CLEARANCE OF MUCUS. Code(s): J44.9 - Chronic obstructive pulmonary disease, unspecified Plan: Continue current treatment Continue to follow-up with pulmonology Dr. Garvey (5) Bilateral shoulder pain: Code(s): M25.511 - Pain in right shoulder; M25.512 - Pain in left shoulder Plan: Suspect musculoskeletal in origin Start physical therapy Patient can also try [id number] Tylenol as needed 650 mg every 6 hours Encouraged heating packs p.r.n. Notify office if no improvement in pain after finishing physical therapy Patient agreed with the plan Plan Follow-up in 3 months or sooner as needed Orders: Orders Influenza [id number] Immunization Today Z23 - Encounter for immunization PT Evaluation and Treatment Today M25.511 - Pain in right shoulder, M25.512 - Pain in left shoulder Coding Level of Care Code Est Pt Level 4 (20040) Diagnoses Hypothyroidism E03.9 Anxiety F41.9 Bipolar disorder F31.9 COPD (chronic obstructive pulmonary disease) J44.9 Bilateral shoulder pain M25.511; M25.512
== END 2023-07-09 08:56 | disposition home or self-care (01) ==
LOC: HO.HMGH 08:23
PROVIDERS: PCP Nurse Practitioner Family; Visit Provider Nurse Practitioner Family
DX: E03.9 Hypothyroidism, unspecified (principal); F41.9 Anxiety disorder, unspecified; F31.9 Bipolar disorder, unspecified; J44.9 Chronic obstructive pulmonary disease, unspecified; M25.511 Pain in right shoulder; M25.512 Pain in left shoulder; Z23 Encounter for immunization
CPT/HCPCS: 90471; 90686; 99214

== ENCOUNTER 2023-07-13 06:43 | Outpatient (REF) | payer MEDICARE, MEDICAID, SELFPAY ==
--- NOTE | ~2023-07-13 | CT_ITS ---
EXAMINATION: CT CHEST SCREENING CLINICAL INFORMATION: Current smoker. 45 pack year history. COMPARISON: Previous chest CT most recent February 2022 TECHNIQUE: Multidetector volumetric CT imaging of the chest is performed without contrast using low dose technique. Additional 2D coronal and sagittal reformatted images and axial 3D maximum intensity projection (MIP) images are generated on the CT workstation. This CT examination was performed using dose optimization techniques as appropriate, variously including the following: *Automated exposure control *Adjustment of mA and/or kV according to patient size (this includes techniques or standardized protocols for targeted exams where dose is matched to indication/reason for exam; i.e. extremities or head) *Use of iterative reconstruction technique DLP: 52 mGy-cm FINDINGS: LUNGS: Mild emphysema. Stable 4 mm right upper lobe nodule axial image 188 series 5. Linear scarring or subsegmental atelectasis in the lingula adjacent to the pleural fissure. Bronchial wall thickening in the right lower lobe. Groundglass attenuation in the posterior costophrenic sulcus of the right lower lobe. On sagittal and coronal reconstructed images this appears to correspond to atelectasis. No endobronchial or endotracheal lesion. MEDIASTINUM: The mediastinum is normal. CORONARY ARTERY CALCIFICATION: Mild PLEURA: There is no pleural effusion. Prominent extrapleural fat adjacent to the lateral left upper lobe. AXILLA: No lymphadenopathy. UPPER ABDOMEN: Low-attenuation in the body of the pancreas. This may represent partial volume averaging with the adjacent fat. OSSEOUS STRUCTURES: Degenerative changes of the spine. CT/CT lung screening IMPRESSION: Mild emphysema. No suspicious pulmonary nodule. Low-attenuation area in the body of the pancreas. This may represent partial volume averaging with the adjacent peripancreatic fat. ASSESSMENT: Lung-RADS category 2S RECOMMENDATION: Annual low-dose chest CT follow-up recommended. Attention on pancreas finding on follow-up exams recommended. Dedicated CT or MRI of the abdomen with contrast should be considered.
== END 2023-07-13 06:44 | disposition home or self-care (01) ==
LOC: HO.CT 06:43
PROVIDERS: PCP Nurse Practitioner Family; Visit Provider Physician Assistant Medical
DX: Z12.2 Encounter for screening for malignant neoplasm of respiratory organs (principal); F17.210 Nicotine dependence, cigarettes, uncomplicated
CPT/HCPCS: 71271

== ENCOUNTER 2023-08-10 08:43 | Outpatient (AMB) | payer MEDICARE, MEDICAID, SELFPAY ==
--- NOTE | 2023-08-10 09:04 | MHC.OFFVIS ---
Intake Vital Signs 08/10/23 09:05 Height 5 ft 8 in Weight 186 lb BMI 28.3 BP 102/64 Blood Pressure Location Lt brachial Position Sitting Pulse 87 Pulse Source Pulse Oximeter Pulse Oximetry (%) 91 L Oxygen Delivery Method Room Air Intake Visit Reasons: copd Intake Note: pt is here for follow up and state she is using her nebulizer more that usually, had episode where she needed her inhaler in the shower. Just tight in the chest for a few weeks. 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 Allergies bee pollen [BEE STINGS] Allergy (Unknown, Verified 08/10/23 09:13) UNKNOWN pneumococcal vaccine [PNEUMOCOCCAL VACCINE] Allergy (Unknown, Verified 08/10/23 09:13) SWELLING Medication List - Last Reconciled 08/10/23 by Albaro Garvey MD albuterol sulfate 2.5 mg (3 mL) inhalation Q6H PRN cholecalciferol (vitamin D3) 50 mcg PO DAILY clonazepam 1 mg PO BID PRN docusate sodium (Colace) 100 mg PO DAILY PRN fluticasone propion-salmeterol 250-50 mcg/dose (Advair Diskus) 1 inh inhalation BID folic acid 0.4 mg PO DAILY hydroxyzine HCl 50 mg PO BEDTIME lamotrigine 100 mg PO BID levothyroxine 175 mcg PO DAILY lithium carbonate 600 mg PO BEDTIME quetiapine 300 mg PO DAILY quetiapine 400 mg PO BEDTIME Ventolin HFA 90 mcg/actuation (albuterol sulfate) 2 puffs PO Q4-6H PRN NS zolpidem 5 mg PO BEDTIME PRN Do you need a note to return to daycare/school/sports/work: No HPI copd HPI Details 62 YEARS OLD FEMALE A [employer], CURRENTLY SMOKING 1 AND HALF PACK OF CIGARETTES A DAY, SHE DOES HAVE COPD, HAS BEEN ON ADVAIR 250-51 INHALATION B.I.D.. LATELY USING ALBUTEROL TOO FREQUENTLY, BECAUSE OF BOUTS OF COUGH, AND GETS SHORT OF BREATH EASILY ON WALKING AROUND. SHE HAS HAD NO ACUTE RESPIRATORY INFECTION. SHE HAS MULTIPLE COMORBIDITIES INCLUDING BIPOLAR DISORDER. [facility] Medical History Gastroenteritis Personal history of nicotine dependence Hypothyroidism Bipolar disorder Tubular adenoma of colon (~2018) Lung nodule < 6cm on CT Anxiety COPD (chronic obstructive pulmonary disease) Surgical History History of surgery on right wrist (~2016) History of shoulder surgery (~2019) History of colonoscopy Family History Mother Lung cancer Father Colon cancer Social History Household Members: Family Household Members Other:: 2 daughters, 2 grandkids Housing: House Patient Tobacco Use Status: Current everyday Tobacco user Cigarette Packs Per Day: 35 Cigarettes Per Day: 1.5 e-Cigarette/Vaping Use: Never Used Second Hand Smoke Exposure: Yes service: No Current occupational status: unemployed 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 Cognitive needs: No Hearing needs: No Vision needs: No Review of Systems Const All systems reviewed & are unremarkable except as noted in HPI and below ENT Denies nasal congestion and Denies nasal discharge Card Denies chest pain, Denies leg edema and Reports dyspnea on exertion (MILD ) Resp Reports cough (MILD , DURING THE DAY TIME ), Reports dyspnea on exertion (MILD ) and Denies wheezing GI Reports no additional complaints Musc Reports no additional complaints Neuro Reports no additional complaints Psych Reports anxiety and Reports mood swings (CONTROLLED) Endo Reports no additional complaints Aller/Immun Denies wheezing Physical Exam Vital Signs: Last Vital Signs Pulse 87 08/10/23 09:05 BP 102/64 08/10/23 09:05 Pulse Ox 91 L 08/10/23 09:05 Oxygen Delivery Method Room Air 08/10/23 09:05 BMI result Body Mass Index 28.3 Const General: healthy appearing, comfortable, no acute distress, alert and awake Orientation/consciousness: patient oriented x3 HEENT Head: Yes normal to inspection General nose exam: No nasal polyps present and No nasal discharge present Face and sinus: Yes sinuses nontender Mouth: oropharynx normal Throat: Yes posterior oropharynx normal Eyes General: appearance normal, both eyes and all related structures Neck Neck: Yes normal visual inspection, Yes no lymphadenopathy, Yes trachea midline and Yes no JVD Thyroid: Thyroid normal Chest Chest palpation & inspection: normal inspection of the chest, normal palpation of entire chest wall and no tenderness Resp Other: Percussion note is resonant, breath sounds are distant with prolonged expiratory phase . No audible wheezes rhonchi or crepitations. Cardio Palpation: normal PMI Rate: regular rate Rhythm: regular rhythm Heart sounds: no gallops and no murmurs Peripheral pulses: Peripheral pulses 2+ throughout GI Palpation (GI): Soft to palpation, nontender, No hepatosplenomegaly present and no masses Auscultation: normal bowel sounds Back/Spine/Pelvis Thoracic/Lumbar Spine: thoracic and lumbar spine normal to inspection Skin General skin exam: no rashes or lesions noted Neuro General: patient oriented x3 and no focal motor deficits Cranial nerves: Yes CN's II-XII intact bilaterally Extrem General: Yes normal to inspection, Yes no clubbing, cyanosis or edema, Yes no calf tenderness and No venous stasis dermatitis Psych Appearance: grossly normal and disheveled (Slightly) Mental Status: mental status grossly normal Speech and movement: Normal speech and movement present Results Reviewed Results Reviewed: RECENT LDCT . , BENIGN CATEGORY 2 S. Assessment & Plan Assessment & Plan (1) COPD (chronic obstructive pulmonary disease): Comment: (Moderately Severe COPD, seems to be stable, However her main symptom of frequent bouts of cough, is is related to ongoing smoking. Code(s): J44.9 - Chronic obstructive pulmonary disease, unspecified Plan: Tx: CONTINUE ADVAIR dose increased to 500-50 1 INHALATION B.I.D. USE PROAIR 2 PUFFS Q 6 HOURS P.R.N. but uses only sparingly MAY ALSO USE MUCINEX 400 MG B.I.D. TO FACILITATE THE CLEARANCE OF MUCUS. * a told her that her cough and increased shortness of breath is related to smoking, and she must think seriously to quit smoking. (2) Lung nodule < 6cm on CT: Comment: 3x5mm RUL nodule on 2019 scan - She is being followed by our lung screening program team. Last CT scan on 07/30/23, Stable Pulm nodules ,Benign category -2 s Code(s): R91.1 - Solitary pulmonary nodule Plan: Continue annual lung screening program (3) Personal history of nicotine dependence: Comment: (current smoker, 1-1/2 ppd - in LDCT program since 2018) Trying to cut down the amount of cigarettes . It is difficult for her to quit . She has tried Chantix but it causes side effects. Hesitates to use nicotine patches because they fall off. I told her to put a piece of tape on top of the patch. She agrees to try again Code(s): Z87.891 - Personal history of nicotine dependence Plan: Counseled strongly to quit smoking. Nicotine patch 21 mg once a day is prescribed. Medications: New fluticasone propion-salmeterol 500-50 mcg/dose (Advair Diskus) 1 inh inhalation BID 60 ea 3RF 30 days nicotine 1 patch transdermal DAILY 28 ea 2RF Quit smoking 28 days Coding Level of Care Code Est Pt Level 3 (81739) Diagnoses COPD (chronic obstructive pulmonary disease) J44.9 Lung nodule < 6cm on CT R91.1 Personal history of nicotine dependence Z87.891
[2023-08-10 09:05] VITALS: BP 102/64; PULSE 87; O2SAT 91; BMI 28.3
== END 2023-08-10 09:19 | disposition home or self-care (01) ==
PROVIDERS: PCP Nurse Practitioner Family; Visit Provider Internal Medicine
DX: J44.9 Chronic obstructive pulmonary disease, unspecified (principal); R91.1 Solitary pulmonary nodule; Z87.891 Personal history of nicotine dependence
CPT/HCPCS: 99213

== ENCOUNTER → 2023-08-10 08:43 | Outpatient (BNVA) | payer MEDICARE, MEDICAID, SELFPAY | PROVIDERS: PCP Nurse Practitioner Family; Visit Provider Internal Medicine | DX: J44.9 Chronic obstructive pulmonary disease, unspecified (principal); R91.1 Solitary pulmonary nodule; Z87.891 Personal history of nicotine dependence | CPT/HCPCS: 99212 ==

== ENCOUNTER 2023-09-25 08:23 | Outpatient (REF) | payer MEDICARE, MEDICAID, SELFPAY ==
[2023-09-25 10:35] LABS: Alanine Aminotransferase 14 U/L (0-31); Albumin Level 4.2 g/dL (3.5-5.0); Alkaline Phosphatase 85 U/L (39-117); Anion Gap 12 (12-20); Aspartate Amino Transferase 12 U/L (5-31); Bilirubin Total 0.2 mg/dL (0.0-1.0); Blood Urea Nitrogen 11 mg/dL (9-16); Calcium 10.3 mg/dL (8.4-10.2); Carbon Dioxide 30 mmol/L (22-29); Chloride 105 mmol/L (96-108); Cholesterol 148 mg/dL (<200); Estimated Glomerular Filt Rate 42; Glucose Fasting 100 mg/dL (60-99); HDL Cholesterol 57 mg/dL (>40); LDL Cholesterol Calculated 81 mg/dL (<100); Potassium 4.5 mmol/L (3.3-5.1); Sodium 142 mmol/L (135-145); Total Protein 7.1 g/dL (6.5-8.0); Triglycerides 54 mg/dL (<150)
[2023-09-25 10:37] LABS: TSH reflex Free T4 0.98 uIU/mL (0.32-4.0); Vitamin D 25-OH Total 15.2 ng/mL (>30)
[2023-09-25 10:44] LABS: Folate 7.5 ng/mL (> or = 4.0); Vitamin B12 > 2000 pg/mL (200-900)
== END 2023-09-25 08:24 | disposition home or self-care (01) ==
LOC: HO.LAB 08:23
PROVIDERS: PCP Nurse Practitioner Family; Visit Provider Nurse Practitioner Family
DX: E03.9 Hypothyroidism, unspecified (principal); I10 Essential (primary) hypertension
CPT/HCPCS: 36415; 80053; 80061; 82306; 82607; 82746; 84443

== ENCOUNTER 2023-09-30 09:05 | Outpatient (REF) | payer MEDICARE, MEDICAID, SELFPAY ==
--- NOTE | ~2023-09-30 | CT_ITS ---
EXAMINATION: CT ABDOMEN WITH CONTRAST CLINICAL INFORMATION: Pancreatic low-attenuation lesion found on screening CT scan chest COMPARISON: Screening CT scan of chest on 07/16/2023, screening CT colonoscopy on 12/08/2018 TECHNIQUE: Contiguous axial thin section helical images of the abdomen were performed following the administration of oral contrast and 85 mL of Omnipaque 350 intravenous contrast. The data set was reformatted in the coronal and sagittal planes and reviewed on an independent workstation. This CT examination was performed using dose optimization techniques as appropriate, variously including the following: *Automated exposure control *Adjustment of mA and/or kV according to patient size (this includes techniques or standardized protocols for targeted exams where dose is matched to indication/reason for exam; i.e. extremities or head) *Use of iterative reconstruction technique DLP: 238.19 mGy-cm FINDINGS: LUNG BASES: Bilateral lung bases are clear. LIVER: No focal lesion is seen in the liver. GALLBLADDER AND BILIARY TREE: Gallbladder appears unremarkable without calcified stones. Common bile duct is not dilated. SPLEEN: The spleen is normal in size without focal lesion. PANCREAS: No focal lesion could be seen in the pancreatic body. The pancreatic uncinate process shows diffuse fatty infiltration. ADRENAL GLANDS: Adrenal glands are normal in size without focal lesion bilaterally. KIDNEYS: Bilateral kidneys are normal in size without focal lesion. A persistent 0.7 x 0.3 cm calculus is seen in posterior left mid renal calyx. BOWELS: There is normal filling of large and small bowel loops with oral contrast all the way down to the descending colon. RETROPERITONEUM: No abnormally enlarged retroperitoneal lymph nodes, mass or hematoma could be seen. BLOOD VESSELS: Abdominal aorta is normal in size and smoothly patent. ABDOMINAL WALL: Small umbilical hernia containing mesenteric fat is seen. PERITONEUM: There was no ascites. There were no abdominal peritoneal inflammatory changes seen. No free peritoneal air was seen. No abnormally enlarged mesenteric lymph nodes are found. BONES: T12 and L1 bilateral laminectomies, resection of spinous processes are seen. No fracture or dislocation. No focal bone lesion diagnostic of metastatic disease could be seen in the lumbar region. CT/CT abdomen w IV con IMPRESSION: 1. No focal lesion in the pancreatic body is seen. There is unchanged diffuse fatty infiltration of the pancreatic uncinate process. 2. Unchanged Nonobstructive left renal calculus.
[2023-09-30] MEDS: iohexoL 350 MG/ML 75 ML INFUS..BTL 85 ML IV (10:44)
== END 2023-09-30 09:06 | disposition home or self-care (01) ==
LOC: HO.CT 09:05
PROVIDERS: PCP Nurse Practitioner Family; Visit Provider Nurse Practitioner Family
DX: Q45.3 Other congenital malformations of pancreas and pancreatic duct (principal)
CPT/HCPCS: 74160; Q9967

== ENCOUNTER 2023-10-07 07:57 | Outpatient (AMB) | payer MEDICARE, MEDICAID, SELFPAY ==
--- NOTE | 2023-10-07 08:08 | A.OFFPC_ITS ---
Vital Signs 10/07/23 08:09 Height 5 ft 8 in Weight 193 lb BMI 29.3 BP 118/74 Blood Pressure Location Lt brachial Position Sitting Pulse 86 Pulse Source Pulse Oximeter Pulse Oximetry (%) 92 Oxygen Delivery Method Room Air Intake Visit Reasons: Thyroid Allergies bee pollen [BEE STINGS] Allergy (Unknown, Verified 10/07/23 08:09) UNKNOWN pneumococcal vaccine [PNEUMOCOCCAL VACCINE] Allergy (Unknown, Verified 10/07/23 08:09) SWELLING Tobacco use date assessed: 10/07/23 Dental Screening Dental Screen Date: 10/07/23 Did you have a dental visit in the last 12 months?: No Did you have a dental problem in the last 6 months where you did not have access to dental care?: No Was dental information given to patient?: No HPI Thyroid HPI Details 62-year-old female presents to the offic e to discuss her medical condition. I will be assuming her care as her primary care provider has left the practice. Patient is complaining of bilateral shoulder pain. Symptoms have been present for the past few months and the right is worse than the left. Complains of morning stiffness and difficulty lifting the arm over the shoulder level. Does not recall any fall or injury. The nicotine patches do not work for her and patient is continuing to smoke. She smokes 1-1/2 packs a day and recently had a negative lung cancer screening. Patient has bipolar disorder and sees a psychiatrist for medications. He prescribes clonazepam, hydroxyzine, Lamictal, Seroquel and Ambien. Her symptoms are well controlled. She lives with her 2 daughters. [facility] Medical History (Updated 08/10/23 @ 09:27 by Albaro Garvey MD) Gastroenteritis Personal history of nicotine dependence Hypothyroidism Bipolar disorder Tubular adenoma of colon (~2018) Lung nodule < 6cm on CT Anxiety COPD (chronic obstructive pulmonary disease) Surgical History History of surgery on right wrist (~2015) History of shoulder surgery (~2019) History of colonoscopy Family History Mother Lung cancer Father Colon cancer Social History Household Members: Family Household Members Other:: 2 daughters, 2 grandkids Housing: House Patient Tobacco Use Status: Current everyday Tobacco user Tobacco use type: Cigarette Cigarette Packs Per Day: 35 Cigarettes Per Day: 1.5 e-Cigarette/Vaping Use: Never Used Second Hand Smoke Exposure: Yes service: No Current occupational status: unemployed 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 1. Little interest or pleasure in doing things: more than half the days 2. Feeling down, depressed, or hopeless: nearly every day 3. Trouble falling or staying asleep, or sleeping too much: nearly every day 4. Feeling tired or having little energy: nearly every day 5. Poor appetite or overeating: nearly every day (poor appetite ) 6. Feeling bad about yourself - or that you are a failure or have let yourself or your family down: not at all 7. Trouble concentrating on things, such as reading the newspaper or watching television: nearly every day 8. Moving or speaking so slowly that other people could have noticed. Or the opposite - being so fidgety or restless that you have been moving around a lot more than usual: more than half the days 9. Thoughts that you would be better off or of hurting yourself in some way: not at all Total score: 19 Depression Screening Interpretation: Positive Depression Screening Follow-up: In treatment Depression Screening Done: Yes 07728 - PHQ-9 Billing: Yes Source: Developed by Drs. Ok Elmore, Alisha Bartlett, Chris Gallo and colleagues, with an educational ty from [employer]. Thrive Questionnaire Date Thrive assessed: 10/07/23 I am a: Patient What is your living situation today?: I have a steady place to live Within the past 12 months, did the food you bought not last and you didn't have the money to get more?: Never true Within the past 12 months, did you worry whether your food would run out before you got money to buy more?: Never true Do you have trouble paying for medicines?: No Do you have trouble getting transportation to medical appointments?: No Do you have trouble paying your heating and electricity bill?: No Do you have trouble taking care of your child, family member or friend?: No Do you have trouble with day-to-day activities such as bathing, preparing meals, shopping, managing finances, etc.?: No Are you currently unemployed and looking for a job?: No Are you interested in more education?: No Currently or been in a relationship where the following occur: no concerns reported THRIVE Score: 0 AUDIT C Alcohol Use Questionnaire (AUDIT-C) 1. How often do you have a drink containing alcohol?: Never 2. How many drinks containing alcohol do you have on a typical day when you are drinking?: 1 or 2 (0) 3. How often do you have six or more drinks on one occasion?: Never Total Score: 0 Score Reviewed/Action Taken: No NAIMA-7 AMB Questionnaire NAIMA-7 Date NAIMA - 7 assessed: 10/07/23 Feeling nervous, anxious, or on edge: 0 = Not at all Not being able to stop or control worryin = Not at all Worrying too much about different things: 0 = Not at all Trouble relaxin = Not at all Being so restless that it is hard to sit still: 0 = Not at all Becoming easily annoyed or irritable: 0 = Not at all Feeling afraid as if something awful might happen: 0 = Not at all Total NAIMA-7 score (0-4 normal; 5-9 mild; 10-14 moderate; 15-21 severe): 0 Source: Developed by Drs. Ok Elmore, Alisha Bartlett, Chris Gallo and colleagues, with an educational ty from [employer]. Physical exam (Primary Care) Vital Signs: Last Vital Signs Pulse 86 10/07/23 08:09 BP 118/74 10/07/23 08:09 Pulse Ox 92 10/07/23 08:09 Oxygen Delivery Method Room Air 10/07/23 08:09 Care Plan Goal for BP management: Blood pressure is stable. BMI result Body Mass Index 29.3 Tobacco/Smoking Status: Tobacco use Status Tobacco use date assessed 10/07/23 10/07/23 08:17 Patient Tobacco Use Status Current everyday Tobacco 10/07/23 08:17 Tobacco use type Cigarette 10/07/23 08:17 e-Cigarette/Vaping Use Never Used 10/07/23 08:17 Are you ready to quit: No Tobacco cessation counseling provided: No PHQ-9: PHQ-9 Score PHQ-9: Total score 19 10/07/23 08:17 Depression Screening Interpretation: Positive Depression Screening Follow-up: In treatment Thrive Assessment: Date of Thrive Assessment Date Thrive assessed 10/07/23 10/07/23 08:17 Currently or been in a relationship where the following occur: no concerns reported Const General: cooperative and healthy appearing Nutritional Appearance: well nourished Orientation/consciousness: patient oriented x3 Limitations: no limitations HENMT Head: Yes normal to inspection Eyes General: appearance normal, both eyes and all related structures Neck Neck: Yes normal visual inspection Chest Chest palpation & inspection: normal palpation of entire chest wall Resp Effort & Inspection: normal respiratory effort Neuro General: patient oriented x3 Assessment and Plan Assessment & Plan (1) Sprain of right shoulder: Code(s): S43.401A - Unspecified sprain of right shoulder joint, initial encounter Plan: X-ray of the right shoulder has been ordered. Meloxicam for pain has been prescribed. Physical therapy has been ordered. Will continue to monitor. (2) Hypothyroidism: Code(s): E03.9 - Hypothyroidism, unspecified Plan: TSH has been ordered. Will call with the results. Continue Synthroid at the same dosage. (3) COPD (chronic obstructive pulmonary disease): Comment: (Moderately Severe COPD, seems to be stable, However her main symptom of frequent bouts of cough, is is related to ongoing smoking. Code(s): J44.9 - Chronic obstructive pulmonary disease, unspecified Plan: Continue medications at the same dosage. (4) Personal history of nicotine dependence: Comment: (current smoker, 1-1/2 ppd - in LDCT program since 2019) Trying to cut down the amount of cigarettes . It is difficult for her to quit . She has tried Chantix but it causes side effects. Hesitates to use nicotine patches because they fall off. I told her to put a piece of tape on top of the patch. She agrees to try again Code(s): Z87.891 - Personal history of nicotine dependence Plan: As noted. Patient does not want to quit at the moment. (5) Bipolar disorder: Code(s): F31.9 - Bipolar disorder, unspecified Plan: On current medications, patient is stable. (6) Anemia: Code(s): D64.9 - Anemia, unspecified Plan: Hemoglobin is stable. Orders: Orders PT Evaluation and Treatment Today S43.401A - Unspecified sprain of right shoulder joint, initial encounter Thyroid Stimulating Hormone Today E03.9 - Hypothyroidism, unspecified XR shoulder RT min 2V Today S43.401A - Unspecified sprain of right shoulder joint, initial encounter Complete Blood Count no Diff Today E03.9 - Hypothyroidism, unspecified Medications: Discontinued nicotine Discontinued Reason: Patient no longer taking 1 patch transdermal DAILY 28 days 28 ea 2RF Quit smoking Coding Level of Care Code Est Pt Level 4 (65721) Diagnoses Sprain of right shoulder S43.401A Hypothyroidism E03.9 COPD (chronic obstructive pulmonary disease) J44.9 Personal history of nicotine dependence Z87.891 Bipolar disorder F31.9 Anemia D64.9
[2023-10-07 08:09] VITALS: BP 118/74; PULSE 86; O2SAT 92; BMI 29.3
== END 2023-10-07 08:47 | disposition home or self-care (01) ==
PROVIDERS: PCP Nurse Practitioner Family; Visit Provider Internal Medicine
DX: J44.9 Chronic obstructive pulmonary disease, unspecified (principal); F31.9 Bipolar disorder, unspecified; S43.401A Unspecified sprain of right shoulder joint, initial encounter; E03.9 Hypothyroidism, unspecified; Z87.891 Personal history of nicotine dependence; D64.9 Anemia, unspecified
CPT/HCPCS: 99214

== ENCOUNTER 2023-11-09 09:20 | Outpatient (REF) | payer MEDICARE, MEDICAID, SELFPAY ==
--- NOTE | ~2023-11-09 | XR_ITS ---
EXAMINATION: XR SHOULDER, RIGHT CLINICAL INFORMATION: Unspecified sprain of right shoulder joint, initial encounter. COMPARISON: Radiographs right shoulder 11/12/2018. TECHNIQUE: Four views of the right shoulder. FINDINGS: Orthopedic hardware partially imaged in the lower cervical spine. Dextroscoliosis of the partially imaged thoracic spine with multilevel degenerative changes. The bones are diffusely demineralized. Moderate degenerative changes in the acromioclavicular joint with joint space narrowing and hypertrophic change. Mild degenerative changes with hypertrophic change along the glenoid. XR/XR shoulder RT min 2V IMPRESSION: 1. Moderate degenerative changes in the acromioclavicular joint. 2. Mild degenerative changes in the glenohumeral joint.
== END 2023-11-09 09:21 | disposition home or self-care (01) ==
LOC: HO.XRAY 09:20
PROVIDERS: PCP Internal Medicine; Visit Provider Internal Medicine
DX: Z13.89 Encounter for screening for other disorder (principal)
CPT/HCPCS: 73030

== ENCOUNTER 2023-11-09 09:26 | Outpatient (AMB) | payer MEDICARE, MEDICAID, SELFPAY ==
[2023-11-09 09:28] VITALS: BP 108/62; PULSE 76; O2SAT 93; BMI 30.3
--- NOTE | 2023-11-09 09:28 | MHC.OFFVIS ---
Intake Vital Signs 11/09/23 09:28 Height 5 ft 8 in Weight 199 lb 8.293 oz BMI 30.3 BP 108/62 Blood Pressure Location Rt brachial Position Sitting Pulse 76 Pulse Source Doppler Pulse Oximetry (%) 93 Oxygen Delivery Method Room Air Intake Visit Reasons: copd Allergies bee pollen [BEE STINGS] Allergy (Unknown, Verified 11/09/23 09:43) UNKNOWN pneumococcal vaccine [PNEUMOCOCCAL VACCINE] Allergy (Unknown, Verified 11/09/23 09:43) SWELLING Medication List - Last Reconciled 11/09/23 by Albaro Garvey MD albuterol sulfate 2.5 mg (3 mL) inhalation Q6H PRN cholecalciferol (vitamin D3) 50 mcg PO DAILY clonazepam 1 mg PO BID PRN docusate sodium (Colace) 100 mg PO DAILY PRN fluticasone propion-salmeterol 500-50 mcg/dose (Advair Diskus) 1 inh inhalation BID 30 days folic acid 0.4 mg PO DAILY hydroxyzine HCl 50 mg PO BEDTIME lamotrigine 100 mg PO BID levothyroxine 175 mcg PO DAILY lithium carbonate 600 mg PO BEDTIME quetiapine 300 mg PO DAILY quetiapine 400 mg PO BEDTIME Ventolin HFA 90 mcg/actuation (albuterol sulfate) 2 puffs PO Q4-6H PRN NS zolpidem 5 mg PO BEDTIME PRN Do you need a note to return to daycare/school/sports/work: No HPI copd HPI Details 63 YEARS OLD, FEMALE [employer], COMES FOR HER ROUTINE. FOLLOW-UP AFTER 4 MONTHS STILL SMOKING BUT HAS CUT DOWN TO 1 PACK A DAY, SHE CLAIMS THAT SHE DOES NOT SMOKE THE WHOLE CIGARETTE. SHE IS DEFINITELY FEELING BETTER, COUGH. IS ONLY OCCASIONAL WITHOUT MUCH EXPECTORATION SHORTNESS OF BREATH IS LESS THAN BEFORE. SHE IS EATING BETTER AND HAS ACTUALLY PUT ON SOME WEIGHT. [facility] Medical History Gastroenteritis Personal history of nicotine dependence Hypothyroidism Bipolar disorder Tubular adenoma of colon (~2018) Lung nodule < 6cm on CT Anxiety COPD (chronic obstructive pulmonary disease) Surgical History History of surgery on right wrist (~2015) History of shoulder surgery (~2019) History of colonoscopy Family History Mother Lung cancer Father Colon cancer Social History Household Members: Family Household Members Other:: 2 daughters, 2 grandkids Housing: House Patient Tobacco Use Status: Current everyday Tobacco user Tobacco use type: Cigarette Cigarette Packs Per Day: 35 Cigarettes Per Day: 1.5 e-Cigarette/Vaping Use: Never Used Second Hand Smoke Exposure: Yes service: No Current occupational status: unemployed 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 Cognitive needs: No Hearing needs: No Vision needs: Yes Review of Systems Const All systems reviewed & are unremarkable except as noted in HPI and below ENT Denies nasal congestion and Denies nasal discharge Card Denies chest pain, Denies leg edema and Reports dyspnea on exertion (MILD ) Resp Reports cough (MILD , DURING THE DAY TIME ), Reports dyspnea on exertion (MILD ) and Denies wheezing GI Reports no additional complaints Musc Reports no additional complaints Neuro Reports no additional complaints Psych Reports anxiety and Reports mood swings (CONTROLLED) Endo Reports no additional complaints Aller/Immun Denies wheezing Physical Exam Vital Signs: Last Vital Signs Pulse 76 11/09/23 09:28 BP 108/62 11/09/23 09:28 Pulse Ox 93 11/09/23 09:28 Oxygen Delivery Method Room Air 11/09/23 09:28 BMI result Body Mass Index 30.3 Const General: healthy appearing, comfortable, no acute distress, alert and awake Orientation/consciousness: patient oriented x3 HEENT Head: Yes normal to inspection General nose exam: No nasal polyps present and No nasal discharge present Face and sinus: Yes sinuses nontender Mouth: oropharynx normal Throat: Yes posterior oropharynx normal Eyes General: appearance normal, both eyes and all related structures Neck Neck: Yes normal visual inspection, Yes no lymphadenopathy, Yes trachea midline and Yes no JVD Thyroid: Thyroid normal Chest Chest palpation & inspection: normal inspection of the chest, normal palpation of entire chest wall and no tenderness Resp Other: Percussion note is resonant, breath sounds are distant with prolonged expiratory phase . No audible wheezes rhonchi or crepitations. Cardio Palpation: normal PMI Rate: regular rate Rhythm: regular rhythm Heart sounds: no gallops and no murmurs Peripheral pulses: Peripheral pulses 2+ throughout GI Palpation (GI): Soft to palpation, nontender, No hepatosplenomegaly present and no masses Auscultation: normal bowel sounds Back/Spine/Pelvis Thoracic/Lumbar Spine: thoracic and lumbar spine normal to inspection Skin General skin exam: no rashes or lesions noted Neuro General: patient oriented x3 and no focal motor deficits Cranial nerves: Yes CN's II-XII intact bilaterally Extrem General: Yes normal to inspection, Yes no clubbing, cyanosis or edema, Yes no calf tenderness and No venous stasis dermatitis Psych Appearance: grossly normal and disheveled (Slightly) Mental Status: mental status grossly normal Speech and movement: Normal speech and movement present Office Procedures Spirometry Testing Spirometry Comments: Spirometry done in the office, Dr. Garevy has the results results scanned to her chart. 05902- Spirometry Results Reviewed Results Reviewed: SPIROMETRY 01/17/21 FVC= 90 % FEV1 = 74 % FEF 25-75 = 37 % 11/09/23 FVC= 76% FEV1 = 63 % FEF 25-75 = 46 % Assessment & Plan Assessment & Plan (1) COPD (chronic obstructive pulmonary disease): Comment: (Moderately Severe COPD, seems to be stable, and symptomatically improved since she has cut down on smoking and also with the use of Advair. RESULTS OF SPIROMETRY EXPLAINED TO HER. Code(s): J44.9 - Chronic obstructive pulmonary disease, unspecified Plan: Continue Advair 500-51 inhalation b.i.d. Albuterol HFA 2 puffs Q 4-6 hours p.r.n. or alternatively albuterol solution in the nebulizer Q 6 hours p.r.n. (2) Lung nodule < 6cm on CT: Comment: 3x5mm RUL nodule on 2019 scan - She is being followed by our lung screening program team. Last CT scan on 07/30/23, Stable Pulm nodules ,Benign category -2 s Code(s): R91.1 - Solitary pulmonary nodule Plan: CONTINUE ANNUAL SCREENING . (3) Personal history of nicotine dependence: Comment: (current smoker, 1-1/2 ppd - in LDCT program since 2019) Trying to cut down the amount of cigarettes . It is difficult for her to quit . She has tried Chantix but it causes side effects. Code(s): Z87.891 - Personal history of nicotine dependence Plan: Again counseled to worked words quitting completely. Next step is to cut down the number of cigarettes to 10 cigarettes a day. Orders: Orders AMB Spirometry Testing Today J44.9 - Chronic obstructive pulmonary disease, unspecified Medications: Refilled Ventolin HFA 90 mcg/actuation (albuterol sulfate) 2 puffs PO Q4-6H PRN 18 ea 3RF for wheezing NS fluticasone propion-salmeterol 500-50 mcg/dose (Advair Diskus) 1 inh inhalation BID 30 days 60 ea 3RF albuterol sulfate 2.5 mg (3 mL) inhalation Q6H PRN 450 mL 3RF for wheezing J44.9 - Chronic obstructive pulmonary disease, unspecified Coding Level of Care Code Est Pt Level 3 (72902) Diagnoses COPD (chronic obstructive pulmonary disease) J44.9 Lung nodule < 6cm on CT R91.1 Personal history of nicotine dependence Z87.891 CPT Codes Spirometry - CPT: 31930- Spirometry ([id number])
== END 2023-11-09 10:01 | disposition home or self-care (01) ==
PROVIDERS: PCP Nurse Practitioner Family; Visit Provider Internal Medicine
DX: J44.9 Chronic obstructive pulmonary disease, unspecified (principal); R91.1 Solitary pulmonary nodule; Z87.891 Personal history of nicotine dependence
CPT/HCPCS: 94010; 99213

== ENCOUNTER → 2023-11-09 10:30 | Outpatient (BNV) | payer MEDICARE, MEDICAID, SELFPAY | PROVIDERS: PCP Internal Medicine; Visit Provider Radiology Diagnostic Radiology | DX: Z12.31 Encounter for screening mammogram for malignant neoplasm of breast (principal) | CPT/HCPCS: 77063; 77067 ==

== ENCOUNTER 2023-11-09 10:32 | Outpatient (REF) | payer MEDICARE, MEDICAID, SELFPAY | END 2023-11-09 10:33 | disposition home or self-care (01) | LOC: HO.MAMMO 10:32 | PROVIDERS: PCP Internal Medicine; Visit Provider Nurse Practitioner Family | DX: Z12.31 Encounter for screening mammogram for malignant neoplasm of breast (principal) | CPT/HCPCS: 73030; 77063; 77067; 94010; 99212 ==

== ENCOUNTER 2024-02-09 09:23 | Outpatient (AMB) | payer MEDICARE, MEDICAID, SELFPAY ==
--- NOTE | 2024-02-09 09:31 | A.OFFPC_ITS ---
Vital Signs 02/09/24 09:33 Height 5 ft 8 in Weight 205 lb 8 oz BMI 31.2 BP 130/90 H Blood Pressure Location Lt brachial Position Sitting Pulse 85 Pulse Source Pulse Oximeter Pulse Oximetry (%) 89 L Oxygen Delivery Method Room Air Intake Visit Reasons: F/U 3mo Intake Note: Patient is here to follow up on COPD, Biopolar Disorder, Hypothyroidism . Clinical Material Handler Required: No Service Observer: Not Required per policy Accompanied by: Self / Same As Patient Allergies bee pollen [BEE STINGS] Allergy (Unknown, Verified 02/09/24 09:33) UNKNOWN pneumococcal vaccine [PNEUMOCOCCAL VACCINE] Allergy (Unknown, Verified 02/09/24 09:33) SWELLING Tobacco use date assessed: 02/09/24 Dental Screening Dental Screen Date: 10/07/23 HPI HPI Comments History of Present Illness Details 63-year-old female presents to the offic e to discuss her chronic medical conditions. Patient has bipolar disorder. She is taking medications as directed. Able to function and do all activities. She comes to the office alone. Her breathing is stable. Requests a refill on 1 of the nebulizers. [facility] Medical History Gastroenteritis Personal history of nicotine dependence Hypothyroidism Bipolar disorder Tubular adenoma of colon (~2019) Lung nodule < 6cm on CT Anxiety COPD (chronic obstructive pulmonary disease) Surgical History History of surgery on right wrist (~2016) History of shoulder surgery (~2019) History of colonoscopy Family History Mother Lung cancer Father Colon cancer Social History (Updated 02/09/24 @ 09:37 by CONNOR Ferris) Household Members: Family Household Members Other:: 2 daughters, 2 grandkids Housing: House Alcohol intake: never Patient Tobacco Use Status: Current everyday Tobacco user Tobacco use type: Cigarette Cigarette Packs Per Day: 35 Cigarettes Per Day: 1.5 e-Cigarette/Vaping Use: Never Used Second Hand Smoke Exposure: Yes service: No Current occupational status: unemployed 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 Ok Elmore, Alisha Bartlett, Chris Gallo and colleagues, with an educational ty from [employer]. Physical exam (Primary Care) Vital Signs: Last Vital Signs Pulse 85 02/09/24 09:33 BP 130/90 H 02/09/24 09:33 Pulse Ox 89 L 02/09/24 09:33 Oxygen Delivery Method Room Air 02/09/24 09:33 BMI result Body Mass Index 31.2 Tobacco/Smoking Status: Tobacco use Status Tobacco use date assessed 02/09/24 02/09/24 09:39 Patient Tobacco Use Status Current everyday Tobacco 02/09/24 09:39 Tobacco use type Cigarette 02/09/24 09:39 e-Cigarette/Vaping Use Never Used 02/09/24 09:39 Are you ready to quit: No Thrive Assessment: Date of Thrive Assessment Date Thrive assessed 10/07/23 02/09/24 09:39 Const General: cooperative and healthy appearing Nutritional Appearance: well nourished Orientation/consciousness: patient oriented x3 Limitations: no limitations HENMT Head: Yes normal to inspection Eyes General: appearance normal, both eyes and all related structures Neck Neck: Yes normal visual inspection Chest Chest palpation & inspection: normal palpation of entire chest wall Resp Effort & Inspection: normal respiratory effort Neuro General: patient oriented x3 Assessment and Plan Assessment & Plan (1) Osteoarthritis of left hip: Code(s): M16.12 - Unilateral primary osteoarthritis, left hip Plan: Condition is stable. (2) Hypothyroidism: Code(s): E03.9 - Hypothyroidism, unspecified Plan: TSH is in range. Orders: Orders XR hip LT w PEL1V 02/09/24 M16.12 - Unilateral primary osteoarthritis, left hip Complete Blood Count no Diff 02/09/24 E03.9 - Hypothyroidism, unspecified, M16.12 - Unilateral primary osteoarthritis, left hip Erythrocyte Sedimentation Rate 02/09/24 E03.9 - Hypothyroidism, unspecified, M16.12 - Unilateral primary osteoarthritis, left hip Basic Metabolic Panel 02/09/24 E03.9 - Hypothyroidism, unspecified, M16.12 - Unilateral primary osteoarthritis, left hip Lipid Panel 02/09/24 E03.9 - Hypothyroidism, unspecified, M16.12 - Unilateral primary osteoarthritis, left hip Liver Panel 02/09/24 E03.9 - Hypothyroidism, unspecified, M16.12 - Unilateral primary osteoarthritis, left hip Thyroid Stimulating Hormone 02/09/24 E03.9 - Hypothyroidism, unspecified, M16.12 - Unilateral primary osteoarthritis, left hip UA and rflx microscopic 02/09/24 E03.9 - Hypothyroidism, unspecified, M16.12 - Unilateral primary osteoarthritis, left hip Coding Level of Care Code Est Pt Level 3 (06407) Complex EM visit Add On G2211 Diagnoses Osteoarthritis of left hip M16.12 Hypothyroidism E03.9
[2024-02-09 09:33] VITALS: BP 130/90; PULSE 85; O2SAT 89; BMI 31.2
== END 2024-02-09 11:26 | disposition home or self-care (01) ==
PROVIDERS: PCP Internal Medicine; Visit Provider Internal Medicine
DX: M16.12 Unilateral primary osteoarthritis, left hip (principal); E03.9 Hypothyroidism, unspecified
CPT/HCPCS: 99213; G2211

== ENCOUNTER 2024-03-07 08:22 | Outpatient (REF) | payer MEDICARE, MEDICAID, SELFPAY ==
--- NOTE | ~2024-03-07 | XR_ITS ---
EXAMINATION: XR HIP, LEFT CLINICAL INFORMATION: Left hip pain COMPARISON: None available. TECHNIQUE: Two views of the left hip. AP pelvis. FINDINGS: Mild/moderate right hip osteoarthritis with superior joint space narrowing and marginal osteophytes. The left hip is unremarkable with no joint space narrowing. No fracture or malalignment. No suspicious bone lesion or soft tissue calcification. XR/XR hip LT w PEL1V IMPRESSION: Mild/moderate right hip osteoarthritis.
[2024-03-07 08:59] LABS: Hematocrit 45.3 % (37.0-47.0); Hemoglobin 14.6 g/dl (12.0-16.0); Mean Corpuscular HGB Conc 32.2 g/dl (31.0-35.0); Mean Corpuscular Hemoglobin 29.3 pg (27.0-33.0); Mean Platelet Volume 9.7 fL (9.4-12.3); Platelet Count 220 X10*3/uL (160-400); Red Blood Count 4.98 X10*6/uL (4.20-5.50); Red Cell Distribution Width 15.5 % (11.0-16.0); White Blood Count 8.1 X10*3/uL (4.8-10.8)
[2024-03-07 09:16] LABS: Appearance Urine Clear; Color Urine Yellow; Glucose Urine UA Negative (Negative); Leukocyte Esterase Urine Trace (Negative); Nitrite Urine Negative (Negative); PH 6.5 (5.0-9.0); UMIC TRIGGER UA YES; Urine Blood Negative (Negative); Urine Ketones Negative (Negative); Urine Protein Negative (Neg-Trace)
[2024-03-07 09:35] LABS: Bacteria Urine 1+ (None Seen); Hyaline Casts Urine 0-2 /LPF (0-2); RBC Urine 0-2 /HPF (0-2); WBC Urine 0-5 /HPF (0-5)
[2024-03-07 09:40] LABS: Erythrocyte Sedimentation Rate 6 MM/HR (0-20)
[2024-03-07 09:50] LABS: Alanine Aminotransferase 26 U/L (0-31); Albumin Level 4.5 g/dL (3.5-5.0); Alkaline Phosphatase 81 U/L (39-117); Anion Gap 12 (12-20); Aspartate Amino Transferase 16 U/L (5-31); Bilirubin Direct 0.1 mg/dL (0.0-0.5); Bilirubin Total 0.3 mg/dL (0.0-1.0); Blood Urea Nitrogen 11 mg/dL (9-16); Calcium 10.1 mg/dL (8.4-10.2); Carbon Dioxide 27 mmol/L (22-29); Chloride 107 mmol/L (96-108); Cholesterol 167 mg/dL (<200); Estimated Glomerular Filt Rate 48; Glucose Random 94 mg/dL (60-115); HDL Cholesterol 53 mg/dL (>40); LDL Cholesterol Calculated 93 mg/dL (<100); Potassium 4.1 mmol/L (3.3-5.1); Sodium 142 mmol/L (135-145); Total Protein 7.4 g/dL (6.5-8.0); Triglycerides 105 mg/dL (<150)
[2024-03-07 09:58] LABS: Thyroid Stimulating Hormone 5.76 uIU/mL (0.32-4.0)
== END 2024-03-07 08:23 | disposition home or self-care (01) ==
LOC: HO.XRAY 08:22
PROVIDERS: PCP Internal Medicine; Visit Provider Internal Medicine
DX: M16.12 Unilateral primary osteoarthritis, left hip (principal); E03.9 Hypothyroidism, unspecified
CPT/HCPCS: 36415; 73502; 80048; 80061; 80076; 81001; 81003; 84443; 85027; 85652

== ENCOUNTER 2024-03-14 09:21 | Outpatient (AMB) | payer MEDICARE, MEDICAID, SELFPAY ==
[2024-03-14 09:25] VITALS: BP 130/70; PULSE 81; O2SAT 93; BMI 30.2
--- NOTE | 2024-03-14 09:25 | A.OFFVIS_ITS ---
Vital Signs 03/14/24 09:25 Height 5 ft 8 in Weight 198 lb 6.656 oz BMI 30.2 BP 130/70 Blood Pressure Location Lt brachial Position Sitting Pulse 81 Pulse Source Pulse Oximeter Pulse Oximetry (%) 93 Oxygen Delivery Method Room Air Intake Visit Reasons: COPD Intake Note: pt is here for follow up and states her chest is little heavy but probably from weather. insurance will not pay for Tangoexela 500. Alternative must be sent in. Railroad Operating Engineer Required: No Allergies bee pollen [BEE STINGS] Allergy (Unknown, Verified 03/14/24 09:33) UNKNOWN pneumococcal vaccine [PNEUMOCOCCAL VACCINE] Allergy (Unknown, Verified 03/14/24 09:33) SWELLING Medication List - Last Reconciled 03/14/24 by Albaro Garvey MD albuterol sulfate 2.5 mg (3 mL) inhalation Q6H PRN amitriptyline 10 mg PO BEDTIME clonazepam 1 mg PO BID PRN docusate sodium (Colace) 100 mg PO DAILY PRN fluticasone propion-salmeterol 500-50 mcg/dose (Advair Diskus) 1 inh inhalation BID 30 days hydroxyzine HCl 50 mg PO BEDTIME lamotrigine 100 mg PO BID levothyroxine 175 mcg PO DAILY lithium carbonate 600 mg PO BEDTIME quetiapine 300 mg PO DAILY quetiapine 400 mg PO BEDTIME Ventolin HFA 90 mcg/actuation (albuterol sulfate) 2 puffs PO Q4-6H PRN NS Do you need a note to return to daycare/school/sports/work: No HPI HPI COPD: Details: 63 YEARS OLD VERY PLEASANT FEMALE, COMES AFTER 4 MONTHS FOR FOLLOW-UP. SHE CONTINUES TO SMOKE BUT HAS CUT DOWN TO 15 CIGARETTES A DAY, SHE DOES HAVE INTENTION TO KEEP ON CUTTING IT DOWN. HAS USUAL INTERMITTENT COUGH, GETS SHORT OF BREATH IF SHE WALKS FAST OR CLIMBS STAIRS, BUT NOT ON LEVEL GROUND. OVERALL HAS BEEN STABLE. [facility] Medical History Gastroenteritis Personal history of nicotine dependence Hypothyroidism Bipolar disorder Tubular adenoma of colon (~2018) Lung nodule < 6cm on CT Anxiety COPD (chronic obstructive pulmonary disease) Surgical History History of surgery on right wrist (~2016) History of shoulder surgery (~2019) History of colonoscopy Family History Mother Lung cancer Father Colon cancer Social History Household Members: Family Household Members Other:: 2 daughters, 2 grandkids Housing: House Alcohol intake: never Patient Tobacco Use Status: Current everyday Tobacco user Tobacco use type: Cigarette Cigarette Packs Per Day: 15 Cigarettes Per Day: 0.75 e-Cigarette/Vaping Use: Never Used Second Hand Smoke Exposure: Yes service: No Current occupational status: unemployed 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 Cognitive needs: No Hearing needs: No Vision needs: Yes Review of Systems Const All systems reviewed & are unremarkable except as noted in HPI and below ENT Denies nasal congestion and Denies nasal discharge Card Denies chest pain, Denies leg edema and Reports dyspnea on exertion (MILD ) Resp Reports cough (MILD , DURING THE DAY TIME ), Reports dyspnea on exertion (MILD ) and Denies wheezing GI Reports no additional complaints Musc Reports no additional complaints Neuro Reports no additional complaints Psych Reports anxiety and Reports mood swings (CONTROLLED) Endo Reports no additional complaints Aller/Immun Denies wheezing Physical Exam Vital Signs: Last Vital Signs Pulse 81 03/14/24 09:25 BP 130/70 03/14/24 09:25 Pulse Ox 93 03/14/24 09:25 Oxygen Delivery Method Room Air 03/14/24 09:25 BMI result Body Mass Index 30.2 Const General: healthy appearing, comfortable, no acute distress, alert and awake Orientation/consciousness: patient oriented x3 HEENT Head: Yes normal to inspection General nose exam: No nasal polyps present and No nasal discharge present Face and sinus: Yes sinuses nontender Mouth: oropharynx normal Throat: Yes posterior oropharynx normal Eyes General: appearance normal, both eyes and all related structures Neck Neck: Yes normal visual inspection, Yes no lymphadenopathy, Yes trachea midline and Yes no JVD Thyroid: Thyroid normal Chest Chest palpation & inspection: normal inspection of the chest, normal palpation of entire chest wall and no tenderness Resp Other: Percussion note is resonant, breath sounds are distant with prolonged expiratory phase . No audible wheezes rhonchi or crepitations. Cardio Palpation: normal PMI Rate: regular rate Rhythm: regular rhythm Heart sounds: no gallops and no murmurs Peripheral pulses: Peripheral pulses 2+ throughout GI Palpation (GI): Soft to palpation, nontender, No hepatosplenomegaly present and no masses Auscultation: normal bowel sounds Back/Spine/Pelvis Thoracic/Lumbar Spine: thoracic and lumbar spine normal to inspection Skin General skin exam: no rashes or lesions noted Neuro General: patient oriented x3 and no focal motor deficits Cranial nerves: Yes CN's II-XII intact bilaterally Extrem General: Yes normal to inspection, Yes no clubbing, cyanosis or edema, Yes no calf tenderness and No venous stasis dermatitis Psych Appearance: grossly normal and disheveled (Slightly) Mental Status: mental status grossly normal Speech and movement: Normal speech and movement present Assessment & Plan Assessment & Plan (1) COPD (chronic obstructive pulmonary disease): Comment: (Moderately Severe COPD, remains stable , Code(s): J44.9 - Chronic obstructive pulmonary disease, unspecified Category: Medical Plan: Continue Advair but does reduced to 250-50 1 inhalation b.i.d.. Albuterol HFA( Ventolin ) 2 puffs Q 4-6 hours p.r.n. when outdoors Albuterol solution in the nebulizer Q 4-6 hours p.r.n. when at home, advised to use it as minimal as possible. (2) Lung nodule < 6cm on CT: Comment: 3x5mm RUL nodule on 2020 scan - She is being followed by our lung screening program team. Last CT scan on 07/30/23, Stable Pulm nodules ,Benign category -2 s Code(s): R91.1 - Solitary pulmonary nodule Category: Medical Plan: Stressed that she should continue in the lung screening program . (3) Personal history of nicotine dependence: Comment: Lifelong history of smoking, slowly cutting down the number of cigarettes, currently down to 15 cigarettes a day. Code(s): Z87.891 - Personal history of nicotine dependence Category: Medical Plan: Discussed in detail and advise that she should try to cut down to 10 cigarettes a day, with the ultimate goal of stopping completely. Because of her bipolar disorder it is difficult for her to quit smoking. Medications: New fluticasone propion-salmeterol 250-50 mcg/dose 1 inh inhalation BID 60 ea 5RF copd 30 days Coding Level of Care Code Est Pt Level 3 (71617) Diagnoses COPD (chronic obstructive pulmonary disease) J44.9 Lung nodule < 6cm on CT R91.1 Personal history of nicotine dependence Z87.893
== END 2024-03-14 09:39 | disposition home or self-care (01) ==
PROVIDERS: PCP Internal Medicine; Visit Provider Internal Medicine
DX: J44.9 Chronic obstructive pulmonary disease, unspecified (principal); R91.1 Solitary pulmonary nodule; Z87.891 Personal history of nicotine dependence
CPT/HCPCS: 99213

== ENCOUNTER → 2024-03-14 09:21 | Outpatient (BNVA) | payer MEDICARE, MEDICAID, SELFPAY | PROVIDERS: PCP Internal Medicine; Visit Provider Internal Medicine | DX: J44.9 Chronic obstructive pulmonary disease, unspecified (principal); R91.1 Solitary pulmonary nodule; Z87.891 Personal history of nicotine dependence | CPT/HCPCS: 99212 ==

== ENCOUNTER 2025-06-19 13:43 | Outpatient (AMB) | payer MEDICARE, MEDICAID, SELFPAY ==
[2025-06-19 13:51] VITALS: BP 122/60; PULSE 79; O2SAT 92; BMI 29.7
--- NOTE | 2025-06-19 13:51 | MHC.OFFVIS ---
Vital Signs 06/19/25 13:51 Height 5 ft 8 in Weight 195 lb 1.745 oz BMI 29.7 BP 122/60 Blood Pressure Location Lt brachial Position Sitting Pulse 79 Pulse Source Pulse Oximeter Pulse Oximetry (%) 92 Oxygen Delivery Method Room Air Intake Visit Reasons: COPD Intake Note: pt is here for follow up and states she is coughing quite a bit not always productive, she is finding herself short of breath at times in am, and throughout the day when climbing stairs. Honing Machine Try Out Setter Required: No J2Ee Programmer: J2Ee Programmer offered & declined Allergies bee pollen (BEE STINGS) Allergy (Unknown, Verified 06/19/25 14:06) UNKNOWN pneumococcal vaccine (PNEUMOCOCCAL VACCINE) Allergy (Unknown, Verified 06/19/25 14:06) SWELLING Medication List - Last Reconciled 06/19/25 by Albaro Garvey MD albuterol sulfate 2.5 mg (3 mL) inhalation Q6H PRN amitriptyline 10 mg PO BEDTIME clonazepam 1 mg PO BID PRN docusate sodium (Colace) 100 mg PO DAILY PRN fluticasone propion-salmeterol 250-50 mcg/dose 1 inh inhalation BID 30 days hydroxyzine HCl 50 mg PO BEDTIME lamotrigine 100 mg PO BID levothyroxine 175 mcg PO DAILY lithium carbonate 600 mg PO BEDTIME quetiapine 300 mg PO DAILY quetiapine 400 mg PO BEDTIME Ventolin HFA 90 mcg/actuation (albuterol sulfate) 2 puffs PO Q4-6H PRN NS Do you need a note to return to daycare/school/sports/work: No HPI HPI COPD: Details: 64 years old female smoker, with history of asthma/COPD, comes after. 4 months for follow-up In the last 1 week or so she is having increased cough and chest congestion. She also states that she gets short of breath on walking even in the house. Denies fever chills or bringing up any purulent phlegm . STILL SMOKING AND HAS GONE UP TO 1 PACK A DAY. SHE SAY IS HER LEVEL OF SMOKING DEPENDS UPON HER MENTAL STATUS. SHE SUFFERS FROM DEPRESSION AND BIPOLAR DISORDER. [facility] Medical History (Updated 06/19/25 @ 14:14 by Albaro Garvey MD) Acute bronchitis Bipolar disorder Anxiety Hypothyroidism COPD (chronic obstructive pulmonary disease) Lung nodule < 6cm on CT Nicotine dependence, cigarettes, uncomplicated Gastroenteritis Tubular adenoma of colon (~2019) Surgical History History of surgery on right wrist (~2015) History of shoulder surgery (~2019) History of colonoscopy Family History Mother Lung cancer Father Colon cancer Social History Household Members: Family Household Members Other:: 2 daughters, 2 grandkids Housing: House Alcohol intake: never Patient Tobacco Use Status: Current everyday Tobacco user Tobacco use type: Cigarette Cigarette Packs Per Day: 20 Cigarettes Per Day: 1 e-Cigarette/Vaping Use: Never Used Second Hand Smoke Exposure: Yes service: No Current occupational status: unemployed 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 Cognitive needs: No Hearing needs: No Vision needs: Yes Review of Systems Const All systems reviewed & are unremarkable except as noted in HPI and below ENT Denies nasal congestion and Denies nasal discharge Card Denies chest pain, Denies leg edema and Reports dyspnea on exertion (MILD ) Resp Reports cough (MILD , DURING THE DAY TIME ), Reports dyspnea on exertion (MILD ) and Denies wheezing GI Reports no additional complaints Musc Reports no additional complaints Neuro Reports no additional complaints Psych Reports anxiety and Reports mood swings (CONTROLLED) Endo Reports no additional complaints Aller/Immun Denies wheezing Physical Exam Vital Signs: Last Vital Signs Pulse 79 06/19/25 13:51 BP 122/60 06/19/25 13:51 Pulse Ox 92 06/19/25 13:51 Oxygen Delivery Method Room Air 06/19/25 13:51 BMI result Body Mass Index 29.7 Const General: healthy appearing, comfortable, no acute distress, alert and awake Orientation/consciousness: patient oriented x3 HEENT Head: Yes normal to inspection General nose exam: No nasal polyps present and No nasal discharge present Face and sinus: Yes sinuses nontender Mouth: oropharynx normal Throat: Yes posterior oropharynx normal Eyes General: appearance normal, both eyes and all related structures Neck Neck: Yes normal visual inspection, Yes no lymphadenopathy, Yes trachea midline and Yes no JVD Thyroid: Thyroid normal Chest Chest palpation & inspection: normal inspection of the chest, normal palpation of entire chest wall and no tenderness Resp Other: Percussion note is resonant, breath sounds are distant with prolonged expiratory phase . Breath sounds are distant with prolonged expiratory phase. She does have a few inspiratory crackles over the right upper lobe area . No wheezes. Cardio Palpation: normal PMI Rate: regular rate Rhythm: regular rhythm Heart sounds: no gallops and no murmurs Peripheral pulses: Peripheral pulses 2+ throughout GI Palpation (GI): Soft to palpation, nontender, No hepatosplenomegaly present and no masses Auscultation: normal bowel sounds Back/Spine/Pelvis Thoracic/Lumbar Spine: thoracic and lumbar spine normal to inspection Skin General skin exam: no rashes or lesions noted Neuro General: patient oriented x3 and no focal motor deficits Cranial nerves: Yes CN's II-XII intact bilaterally Extrem General: Yes normal to inspection, Yes no clubbing, cyanosis or edema, Yes no calf tenderness and No venous stasis dermatitis Psych Appearance: grossly normal and disheveled (Slightly) Mental Status: mental status grossly normal Speech and movement: Normal speech and movement present Results Reviewed Results Reviewed: Last LDCT on 07/13/2023 category [address] scan last year. Assessment & Plan Assessment & Plan (1) COPD (chronic obstructive pulmonary disease): Comment: (Moderately Severe COPD, remains stable , complains of mild to moderate shortness of breath on walking , Code(s): J44.9 - Chronic obstructive pulmonary disease, unspecified Category: Medical Plan: Continue Advair 250-51 inhalation b.i.d. Ventolin HFA 2 puffs Q 6 hours p.r.n.. May also use albuterol solution in the nebulizer Q 4-6 hours p.r.n.. (2) Nicotine dependence, cigarettes, uncomplicated: Comment: (currently at one pk /day Code(s): F17.210 - Nicotine dependence, cigarettes, uncomplicated Category: Medical Plan: She is having hard time to quit smoking and that is because of her underlying bipolar disorder with chronic anxiety/depression. Does not want to use nicotine products. She say is that she is looking for a hypnotist to get 1 or 2 sessions of hypnotic his. Had a good talk with her and told her that she has to quit smoking or at least reduce the number of cigarettes to no more than 5 per day . (3) Acute bronchitis: Comment: At present she seems to have an acute bronchitis and may even have a patch of pneumonitis in the right upper lobe. Code(s): J20.9 - Acute bronchitis, unspecified Category: Medical Plan: Treat her with a course of Z-Tobin, and also prednisone 20 mg b.i.d. for 5 days . Medications: New doxycycline hyclate 100 mg PO BID 7 days 14 tabs 0RF bronchitis prednisone 20 mg PO BID 10 tabs 0RF copd excerbation 5 days doxycycline hyclate 100 mg PO BID 14 tabs 0RF bronchitis 7 days Coding Level of Care Code Est Pt Level 3 (43698) Diagnoses COPD (chronic obstructive pulmonary disease) J44.9 Nicotine dependence, cigarettes, uncomplicated F17.210 Acute bronchitis J20.9
--- OUTSIDE RECORDS SUMMARY | 2025-06-19 16:58 | XMS_ITS | Patient Health Record ---
Author Organization [facility] Address [address] [place] [address] Care Team Providers Care Nitro Man Name Role Phone Chad Cameron MD Primary Care Provider Jairon Bianchi Jr Unavailable Allergies Allergen (clinical drug ingredient) Drug/Non Drug Allergy documented on EMR Reaction Allergy Type Onset Date Status seafood,bees (uncoded) Unknown Allergy Active Reason For Referral No Information Medications Medication SIG (Take, Route, Frequency, Duration) Notes Start Date End Date Status Advair Diskus 250-50 MCG/DOSE 1 puff Inhalation Twice a day Active Combivent Respimat 20-100 MCG/ACT 1 puff Inhalation Four times a day Active Levothyroxine Sodium 175 MCG TAKE 1 TABL ET BY MOUTH EVERY DAY Oral; Duration: 90 Active QUEtiapine Fumarate 300 MG TAKE 2 TABLET BY MOUTH AT BEDTIME INCREASE IN DOSE Oral; Duration: 30 Active Colyte with Flavor Packs 240 GM As directed Orally Over the specified time.; Duration: 1 day(s) 10/15/2018 Active Chaplin Carbonate 300 MG TAKE 2 CAPSULE BY MOUTH AT BEDTIME Oral; Duration: 30 Active clonazePAM 1 MG (Schedule IV Drug) T DEO 1 TABLET BY MOUTH TWICE A DAY NEEDED Oral; Duration: 30 Active Colyte with Flavor Packs 240 GM As directed Orally Over the specified time.; Duration: 1 Active Butorphanol Tartrate 10 MG/ML (Schedule IV Drug) USE 1 SPRAY EACH NOSTRIL AT ONSET OF HEADACHE MAY REPEAT IN 4 HOURS IF NEEDED Nasal; Duration: 90 Active lamoTRIgine 200 MG TAKE 1 TABLET BY TWICE A DAY Oral; Duration: 90 Active Ventolin HFA 108 (90 Base) MCG/ACT INHALE 2 PUFFS BY MOUTH 4TIMES A DAY NEEDED Inhalation; Duration: 25 Active Immunizations Vaccine Route Administration Date Status Comme nts Influenza Unknown 06/28/2018 Administered Social History Tobacco Use: Social History Observation Description Date Details (start date - stop date) Current Smoker NA - NA Tobacco Use/Smoking Question Answer Notes Patient is a current smoker How often do you smoke cigarettes? every day How many cigarettes a day do you smoke? 31 or mo re How soon after you wake up d o you smoke your first cigarette? within 5 minutes Are you interested in quitting? Thinking about q uitting Alcohol Screen Question Answer Notes Did you have a drink containing alcohol in the p ast year? No Points 0 Interpretation Negative Problems Problem Type SNOMED Code ICD Code Onset Dates Problem Status W/U Status Risk Notes Problem Colon cancer screening (647087695) Colon cancer screening (Z12.11) Active confirmed Problem Change in bowel habit (01761514) Change in bowel habit (R19.4) Active confirmed Plan Of Treatment Pending Test Test Name Order Date CT COLON SCREENING NO CONTRAST 9 Future Test Test Name Order Date COLONOSCOPY 07/02/2018 Insurance Providers Payer Name Payer Address Payer Phone Subscriber Number Group Number Insured Name Patient Relationship to Insured Coverage Start Date Coverage End Date MEDICARE OF [place] [address] [place] [address] [id number] STEPHANIE PRITCHETT Self - patient is the insured MEDICAID OF [facility] [address] [place] [address] [id number] STEPHANIE PRITCHETT Self - patient is the insured Medical (General) History Medical History History ICD Code hypothyroid COPD bipolar disorder migraine headaches Surgical History Surgery Date(Month/Year) section x3 carpal tunnel release cervical fusion back surgery wrist surgery
== END 2025-06-19 14:08 | disposition home or self-care (01) ==
LOC: HO.HPS 13:44
PROVIDERS: PCP Internal Medicine; Visit Provider Internal Medicine
DX: J44.9 Chronic obstructive pulmonary disease, unspecified (principal); F17.210 Nicotine dependence, cigarettes, uncomplicated; J20.9 Acute bronchitis, unspecified
CPT/HCPCS: 99213

== ENCOUNTER → 2025-06-19 13:43 | Outpatient (BNVA) | payer MEDICARE, MEDICAID, SELFPAY | PROVIDERS: PCP Internal Medicine; Visit Provider Internal Medicine | DX: J44.89 Other specified chronic obstructive pulmonary disease (principal); J20.9 Acute bronchitis, unspecified; F17.210 Nicotine dependence, cigarettes, uncomplicated | CPT/HCPCS: 99212 ==